=== PATIENT | male | born 1965 | race Caucasian/White ===

== ENCOUNTER 2017-02-22 12:48 | Observation (INO) ==
[2017-02-22 13:22] LABS: Basophils # 0.1 K/mcL (0.0-0.2); Basophils % 0.5 %; Eosinophils # 0.6 K/mcL (0.0-0.6); Eosinophils % 5.8 %; Hematocrit 53.6 % (37.5-50.1); Hemoglobin 18.7 g/dL (12.9-16.9); Immature Granulocytes % 0.3 % (0-4); Lymphocytes % 18.2 %; Mean Corpuscular HGB Conc 34.9 g/dL (31.6-35.5); Mean Corpuscular Hemoglobin 31.4 pg (28.0-33.3); Mean Corpuscular Volume 89.9 fL (83.0-100.0); Mean Platelet Volume 9.7 fL (9.4-12.4); Monocytes # 0.6 K/mcL (0.0-1.3); Monocytes % 5.1 %; Neutrophils # 7.7 K/mcL (1.6-8.9); Platelet Count 350 K/mcL (140-400); Red Blood Count 5.96 M/mcL (4.19-5.50); Red Cell Distribution Width 12.6 % (11.5-14.5); Segmented Neutrophils % 70.1 %
[2017-02-22 13:34] LABS: BUN/Creatinine Ratio 21 (6-26); Blood Urea Nitrogen 21 mg/dL (8-26); Calcium 9.6 mg/dL (8.6-10.8); Carbon Dioxide 26 mEq/L (19-29); Chloride 104 mEq/L (98-109); Glucose 79 mg/dL (70-99); Osmolality,Calculated 292 (280-300); Potassium 3.7 mEq/L (3.5-4.5); Sodium 140 mEq/L (136-145); eGFR For African Americans > 60 (> 60); eGFR For Non-African Americans > 60 (> 60)
--- NOTE | 2017-02-22 14:42 | Electrocardiograph Report ---
[facility] Test Date: 2017-02-22 Pat Name: Sadi Rider Department: 104 Room: Gender: M Hide Dyer: : 1965 Requested By: Alec Hussein Order Number: [id number] Reading MD: Ho Melgar MD Measurements Intervals [place] Rate: 62 P: 46 ID: [id number] QRS: -53 QRSD: 120 T: -11 QT: 393 QTc: 399 Interpretive Statements SINUS RHYTHM LEFT ANTERIOR FASCICULAR BLOCK [QRS AXIS <= -45, QR IN I, RS IN II] INTERPRETATION BASED ON A DEFAULT AGE OF 40 YEARS Electronically Signed On 02-22-2017 14:40:38 EST by Ho Melgar MD
--- NOTE | 2017-02-22 15:16 | Emergency Department Note ---
Disposition Clinical Impression: Chest pain Disposition: Admitted As Inpatient Condition: Fair Referrals: Mendez Hartman CNP [Primary Care Provider] - Forms: ED Satisfaction Letter Time of Disposition: 16:38 Chest Pain HPI - General Chief Complaint: ED Chest Pain Stated Complaint: chest pain Time Seen by Provider: 02/22/17 12:53 Source: patient, EMS Limitations: no limitations Vital Signs Reviewed: Yes Nursing Notes Reviewed: Yes - History of Present Illness HPI Narrative: Presents with chest pain which is sharp and deep and began around 11:30 today and is constant and began with exertion. No pleuritic aspect. No radiation to back. He does have associated diaphoresis dyspnea and was profusely diaphoretic earlier. No pain or swelling of the lower extremities or respiratory symptoms. Does have some bruising which he has from his job but nothing new. No fever or blurred vision. No rhinorrhea, cough, sneezing, blood in the urine or stool. No numbness of the extremities. Social history: No smoking. Family history: Positive for heart disease with his mother Severity scale (1-10): 5 - Related Data Home Medications Medication Instructions Recorded Confirmed Ascorbic Acid [Vitamin C] 250 mg PO DAILY 02/22/17 02/22/17 Aspirin [Aspirin] 81 mg PO DAILY 02/22/17 02/22/17 Ergocalciferol (VITAMIN D2) 50,000 unit PO FR 02/22/17 02/22/17 [Vitamin D2] Ibuprofen [Ibuprofen] 800 mg PO TID PRN 02/22/17 02/22/17 Losartan Potassium [Cozaar] 100 mg PO DAILY 02/22/17 02/22/17 Pravastatin Sodium [Pravastatin 10 mg PO DAILY 02/22/17 02/22/17 Sodium] Allergies Allergy/AdvReac Type Severity Reaction Status Date / Time No Known Allergies Allergy Verified 02/22/17 15:32 Review of Systems: As Per HPI Chest Pain PMH - Past Medical History Medical history: Reports: hyperlipidemia, hypertension Surgical history: Reports: non-contributory Psychiatric history: Reports: no psych history - Social History Smoking Status: Never smoker Alcohol use: Reports: none Drug use: Reports: none Physical Exam CONSTITUTIONAL: Well-appearing; well-nourished; A&O X 3, in no apparent distress HEAD: Normocephalic; atraumatic EYES: PERRL, no scleral icterus NOSE: The nose is normal in appearance without rhinorrhea NECK: No JVD or distended neck veins RESP: Normal chest excursion with respiration; breath sounds clear and equal bilaterally; no wheezes, rhonchi, or rales CARD: Regular rhythm, without murmurs, rub or gallop ABD: Non-distended; non-tender, soft, without rigidity, rebound or guarding,no pulsatile mass CHEST: No pain with palpation SKIN: Normal for age and race; warm and dry without diaphoresis ; no apparent lesions EXTREMITIES: Pulses are 2 plus and equal times 4 extremities, no peripheral edema or calf muscle pain - General Limitations: no limitations General appearance: alert, in distress Course Vital Signs Temperature 97.9 F 02/22/17 12:50 Pulse Rate 64 02/22/17 12:50 Respiratory Rate 16 02/22/17 12:50 Blood Pressure 160/117 02/22/17 12:50 O2 Sat by Pulse Oximetry 97 02/22/17 12:50 Temperature 97.9 F 02/22/17 12:50 Pulse Rate 55 02/22/17 15:45 Respiratory Rate 18 02/22/17 15:45 Blood Pressure 163/99 02/22/17 15:45 O2 Sat by Pulse Oximetry 100 02/22/17 15:45 Oxygen Delivery Oxygen Delivery Room Air Chest Pain - MDM Narrative Medical decision making narrative: I did review the initial labs. The patient's pain is worse and EKG will be repeated and the patient will be admitted with the new onset of pain and typical features as he does have a very concerning history. Patient will receive sublingual nitroglycerin, I will ensure that aspirin has been used today. 1512 I did review the patient's EKG showing normal sinus rhythm with a rate of 62 without acute ischemic change 1516 - Medical Records Medical records reviewed: Yes I reviewed the patient's medical records. - Lab Data Lab results reviewed: Yes I reviewed the patient's lab results. Result diagrams: 02/22/17 12:55 02/22/17 12:55 Lab Results 02/22/17 02/22/17 02/22/17 Range/Units 12:55 12:55 12:55 WBC 11.0 (4.3-11.1) K/mcL RBC 5.96 H (4.19-5.50) M/mcL Hgb 18.7 H (12.9-16.9) g/dL Hct 53.6 H (37.5-50.1) % MCV 89.9 (83.0-100.0) fL MCH 31.4 (28.0-33.3) pg MCHC 34.9 (31.6-35.5) g/dL RDW 12.6 (11.5-14.5) % Plt Count 350 (140-400) K/mcL MPV 9.7 (9.4-12.4) fL Immature Gran % 0.3 (0-4) % Seg Neutrophils % 70.1 % Lymphocytes % 18.2 % Monocytes % 5.1 % Eosinophils % 5.8 % Basophils % 0.5 % Neutrophils # 7.7 (1.6-8.9) K/mcL Lymphocytes # 2.0 (0.6-4.6) K/mcL Monocytes # 0.6 (0.0-1.3) K/mcL Eosinophils # 0.6 (0.0-0.6) K/mcL Basophils # 0.1 (0.0-0.2) K/mcL Sodium 140 (136-145) mEq/L Potassium 3.7 (3.5-4.5) mEq/L Chloride 104 (98-109) mEq/L Carbon Dioxide 26 (19-29) mEq/L BUN 21 (8-26) mg/dL Creatinine 0.98 (0.72-1.25) mg/dL Est GFR ( Amer) > 60 (> 60) Est GFR (Non-Af Amer) > 60 (> 60) BUN/Creatinine Ratio 21 (6-26) Glucose 79 (70-99) mg/dL Calculated Osmolality 292 (280-300) Calcium 9.6 (8.6-10.8) mg/dL Troponin I 0.01 (0-0.03) ng/mL - Radiology Data Radiology results reviewed: Yes I reviewed the patient's radiology results.
[2017-02-22] MEDS ORDERED: Aspirin 81 MG TAB.CHEW PO STA (15:19)
[2017-02-22] MEDS: Nitroglycerin 0.4 MG TAB.SUBL SL PRN ×3 (15:44→16:46)
[2017-02-22] MEDS ORDERED: Nitroglycerin 1 INCH/GM PACKET TP ONE (16:45)
[2017-02-22] MEDS ORDERED: Ondansetron 4 MG/2 ML VIAL IVP PRN (18:18)
[2017-02-22] MEDS ORDERED: Naloxone 0.4 MG/ML INJ IVP PRN (18:18)
[2017-02-22] MEDS ORDERED: 0.9 % Sodium Chloride 1,000 ML IVC SCH (18:30)
--- NOTE | 2017-02-22 18:39 | Internal Med History&Physical ---
Addendum entered and electronically signed by Jose Guadalupe Medel 02/22/17 20:26: Original Note: <Jose Guadalupe Medel - Last Filed: 02/22/17 18:36> Date of Encounter: 02/22/17 Time of Encounter: 18:36 Assessment and Plan (1) Chest pain Current visit: Yes Status: Acute No prior history of CT. Remains hemodynamically stable. CTA chest completed ruled out PE, no pulmonary abnormalities noted No recent cardiac workup. Denies any current chest pain since application of Nitropatch. Continue to rule out ACS TTE now Stress test in the morning Cardiac diet now, nothing by mouth after midnight Continuous telemetry Continue to monitor cardiac biomarkers Qualifiers: Ischemic chest pain type: unspecified angina pectoris type Qualified Code(s ): I20.9 - Angina pectoris, unspecified (2) HLD (hyperlipidemia) Current visit: Yes Status: Acute Continue statin at home dose Qualifiers: Hyperlipidemia type: unspecified Qualified Code(s): E78.5 - Hyperlipidemia , unspecified (3) HTN (hypertension) Current visit: Yes Status: Acute Mildly hypertensive upon admission. However improving since application of Nitropatch. Continue home antihypertensives Qualifiers: Hypertension type: essential hypertension Qualified Code(s): I10 - Essential (primary) hypertension (4) DVT prophylaxis Current visit: Yes Status: Acute Heparin 5000 units subcutaneous twice a day Internal Medicine - H&P: HPI Chief complaint: Chest pain Admitted From: Home Plans for Post Hospital Care: Home History of present illness: Mr. Rider is a 51 year old male with PMH of HLD and HTN. No prior history of CT[facility], ans constant, sharp/deep chest pain which began approximately 11:30 A.M. Patient denies any fever, chills, shortness of breath, extremity pain or swelling, syncope. Admits to increasing fatigue over the last couple of days, diaphoresis and nausea with chest pain and lightheadedness. Chest x-ray and CTA chest negative. Initial troponin negative. EKG normal sinus rhythm. However continued to have chest pain after arrival which was responsive to sublingual nitroglycerin. Chest returned shortly after initial dose of supplemental nitroglycerin, Nitropaste patch was applied and he is now chest pain-free. He is being admitted to rule out ACS Past Med Surg Social Fam HX - Past Medical History Medical history: hyperlipidemia, hypertension Psychiatric history: no psych history - Past Surgical History Surgical History: non-contributory - Social History Smoking Status: Never smoker Smokeless Tobacco Status: No Alcohol use: none Drug use: none - Family History Brother Hx Family Cancer: Yes (Polycythemia vera) Internal Medicine - H&P: Meds Ascorbic Acid [Vitamin C] 250 mg PO DAILY 02/22/17 [History] Aspirin [Aspirin] 81 mg PO DAILY 02/22/17 [History] Ergocalciferol (VITAMIN D2) [Vitamin D2] 50,000 unit PO FR 02/22/17 [History] Ibuprofen [Ibuprofen] 800 mg PO TID PRN 02/22/17 [History] Losartan Potassium [Cozaar] 100 mg PO DAILY 02/22/17 [History] Pravastatin Sodium [Pravastatin Sodium] 10 mg PO DAILY 02/22/17 [History] 3 Allergy/AdvReac Type Severity Reaction Status Date / Time No Known Allergies Allergy Verified 02/22/17 15:32 All Systems PM: A 10-system review of systems was performed and is negative for pertinent findings except as documented above in the HPI. - Constitutional Constitutional: no chills, no fever(s), no night sweats - Cardiovascular Cardiovascular ROS IM: as per HPI - Respiratory Respiratory: no cough, no dyspnea, no wheezing, no excessive phlegm production - Gastrointestinal Gastrointestinal: no abdominal pain, no diarrhea, no hematemesis, no hematochezia, no melena, no nausea, no vomiting - Musculoskeletal Musculoskeletal ROS IM: no numbness, no tingling - Integumentary Integumentary IM: no rash, no unusual bruising - Neurological Neurological ROS: no confusion, no convulsions, no focal weakness, no numbness, no tingling, no tremor(s) - Constitutional Vitals: Temp Pulse Resp BP Pulse Ox 97.9 F 60 18 112/85 96 02/22/17 12:50 02/22/17 17:34 02/22/17 17:34 02/22/17 17:34 02/22/17 17:34 General appearance: Present: cooperative, A&O X 3, no acute distress, answers questions appropriately - Head Head exam: Present: atraumatic, normocephalic - Neck Neck exam general surgery: Present: supple, trachea midline. Absent: lymphadenopathy - Respiratory Respiratory exam: Present: CTAB. Absent: accessory muscle use, rales, rhonchi, wheezes - Cardiovascular Cardiovascular exam: Present: RRR, +S1, +S2. Absent: diastolic murmur, gallop, rubs, systolic murmur - GI/Abdominal GI/Abdominal exam: Present: normal bowel sounds, soft, no peritoneal signs. Absent: distended, tenderness - Extremities Exam Extremities exam: Present: warm, radial pulses palpable and symmetrical. Absent : calf tenderness, cyanotic, pedal edema - Neurological Exam Neurological exam: Present: CN II-XII intact, oriented X3, no focal deficits. Absent: pronater drift, facial droop, speech deficit - Skin Skin exam: Present: dry, intact Internal Med - H&P Results - Labs CBC & Chem 7: 02/22/17 12:55 02/22/17 12:55 - EKG Data -: EKG Interpreted by Myself EKG shows normal: sinus rhythm Rate: normal - EKG Data Prior EKG available for review: yes When compared to previous EKG: there is no significant change Interpretation IM: normal EKG - Diagnostic Studies Chest x-ray Status: image reviewed by me Additional comments: No acute pulmonary process <Jese Lieberman - Last Filed: 02/23/17 02:19> Date of Encounter: 02/22/17 Internal Medicine - H&P: HPI History of present illness: Mr. Rider is a 51 year old male All Systems PM: A 10-system review of systems was performed and is negative for pertinent findings except as documented above in the HPI. - Constitutional Vitals: Temp Pulse Resp BP Pulse Ox 97.8 F 55 18 121/75 98 02/22/17 23:17 02/22/17 23:17 02/22/17 23:17 02/22/17 23:17 02/22/17 23:17 Internal Med - H&P Results - Labs CBC & Chem 7: 02/23/17 00:55 02/23/17 00:55 Labs: Short CBC 02/23/17 Range/Units 00:55 WBC 7.8 (4.3-11.1) K/mcL Hgb 16.4 D (12.9-16.9) g/dL Hct 46.9 (37.5-50.1) % Plt Count 297 (140-400) K/mcL Neutrophils # 4.3 (1.6-8.9) K/mcL BMP 02/23/17 00:55 Sodium 140 Potassium 3.8 Chloride 105 Carbon Dioxide 30 H BUN 18 Creatinine 0.88 Glucose 88 Calcium 8.9 Cardiac Enzymes 02/22/17 02/23/17 Range/Units 19:06 00:55 Troponin I 0.02 0.01 (0-0.03) ng/mL Liver Function 02/22/17 Range/Units 19:06 Total Bilirubin 0.8 (0.2-1.2) mg/dL Direct Bilirubin 0.3 (0.0-0.5) mg/dL AST 35 H (5-34) Units/L ALT 55 (0-55) Units/L Alkaline Phosphatase 86 (38-126) Units/L Albumin 3.5 (3.5-5.0) g/dL - Attending Attestation I have personally performed a face to face evaluation on this patient. I have reviewed and agree with the care plan provided by PAULINE Medel. History and Exam by me shows: Mr. Rider is a 51 year old male with PMH of HLD and HTN, no prior history of CT presented to [facility] today CP , located sub sternal region and left chest wall region radiating to his left shoulder. His CP relieved with SL Nitro. Denied any active CP now. Gen : A, A, O x 3 Chest: Diminished BS b/l, no crackles no wheezing Heart: S1 S2 ++ RRR No murmurs a/p 1. Acute CP So far negative trop no acute EKG changes will do stress test in AM 2. Hb -18 ?? Hemochromatosis vs PCV will check Iron studies
[2017-02-22 19:32] LABS: Albumin 3.5 g/dL (3.5-5.0); Albumin/Globulin Ratio 1.2 (1.1-2.2); Bilirubin,Direct 0.3 mg/dL (0.0-0.5); Bilirubin,Indirect 0.5 mg/dL (0.0-1.2); Bilirubin,Total 0.8 mg/dL (0.2-1.2); Total Protein 6.5 g/dL (6.0-8.3)
[2017-02-22] MEDS: *HR* Heparin 5,000 UNIT/ML VIAL SQ SCH (22:20)
[2017-02-23 01:17] LABS: Basophils % 0.5 %; Eosinophils # 0.6 K/mcL (0.0-0.6); Eosinophils % 7.2 %; Hematocrit 46.9 % (37.5-50.1); Immature Granulocytes % 0.3 % (0-4); Lymphocytes # 2.3 K/mcL (0.6-4.6); Lymphocytes % 29.2 %; Mean Corpuscular Hemoglobin 31.7 pg (28.0-33.3); Mean Corpuscular Volume 90.5 fL (83.0-100.0); Mean Platelet Volume 9.6 fL (9.4-12.4); Monocytes # 0.6 K/mcL (0.0-1.3); Monocytes % 8.2 %; Neutrophils # 4.3 K/mcL (1.6-8.9); Platelet Count 297 K/mcL (140-400); Red Blood Count 5.18 M/mcL (4.19-5.50); Red Cell Distribution Width 12.6 % (11.5-14.5); Segmented Neutrophils % 54.6 %
[2017-02-23 01:20] LABS: Hemoglobin 16.4 g/dL (12.9-16.9)
[2017-02-23 01:32] LABS: BUN/Creatinine Ratio 20 (6-26); Blood Urea Nitrogen 18 mg/dL (8-26); Calcium 8.9 mg/dL (8.6-10.8); Carbon Dioxide 30 mEq/L (19-29); Chloride 105 mEq/L (98-109); Glucose 88 mg/dL (70-99); Osmolality,Calculated 291 (280-300); Potassium 3.8 mEq/L (3.5-4.5); Sodium 140 mEq/L (136-145); eGFR For African Americans > 60 (> 60); eGFR For Non-African Americans > 60 (> 60)
[2017-02-23 01:36] LABS: Chol/HDL Ratio 3.9 (0-4.9)
[2017-02-23] MEDS: *HR* Heparin 5,000 UNIT/ML VIAL SQ SCH ×2 (05:32→21:30)
[2017-02-23] MEDS ORDERED: Regadenoson 0.4 MG/5 ML SYRINGE IVP ONE (09:22)
[2017-02-23] MEDS: Aspirin 81 MG TAB.CHEW PO SCH (11:12)
[2017-02-23] MEDS: Ascorbic Acid 500 MG TABLET PO SCH (11:12)
[2017-02-23] MEDS: Ibuprofen 800 MG TABLET PO PRN ×3 (11:12→21:34)
--- NOTE | 2017-02-23 14:40 | Internal Med Progress Note ---
Date of Encounter: 02/23/17 Time of Encounter: 14:38 - Assessment and plan (1) Chest pain Current Visit: Yes Status: Acute Assessment and plan: presented with chest pain that occurred while working. Serial troponin negative. EKG without acute ST changes. Chest CTA negative for pulmonary embolism. Stress test with mild intensity perfusion defect in which ischemia cannot be excluded. TTE pending. Cont ASA. Cardiology consulted Qualifiers: Ischemic chest pain type: unspecified angina pectoris type Qualified Code(s ): I20.9 - Angina pectoris, unspecified (2) HLD (hyperlipidemia) Current Visit: Yes Status: Acute Assessment and plan: LDL 91, cont home statin Qualifiers: Hyperlipidemia type: unspecified Qualified Code(s): E78.5 - Hyperlipidemia , unspecified (3) HTN (hypertension) Current Visit: Yes Status: Acute Assessment and plan: per hx. BP variable but acceptable. Cont home BP medication. Monitor BP and titrate PRN Qualifiers: Hypertension type: essential hypertension Qualified Code(s): I10 - Essential (primary) hypertension (4) DVT prophylaxis Current Visit: Yes Status: Acute Assessment and plan: heparin - Subjective Interval history: Seen and examined at bedside. Patient is new to me, information obtained from chart review and patient report. Patient's that he had acute onset of chest pain while working yesterday no associated shortness of breath. Says he feels better now but is still having intermittent chest discomfort. No previous history of CAD. He is aware of positive stress test and the need for cardiology consult. - Constitutional Vitals: Temp Pulse Resp BP Pulse Ox 97.6 F 58 18 149/80 97 02/23/17 11:03 02/23/17 12:53 02/23/17 12:53 02/23/17 14:16 02/23/17 11:03 General appearance: Present: cooperative, A&O X 3, no acute distress, answers questions appropriately - Head Head exam: Present: atraumatic, normocephalic - Eye Eye exam: Present: PERRL, conjuntiva pink, sclera anicteric Pupils: Present: PERRL - Neck Neck exam general surgery: Present: supple, trachea midline. Absent: lymphadenopathy - Respiratory Respiratory exam: Present: CTAB. Absent: accessory muscle use, rales, rhonchi, wheezes - Cardiovascular Cardiovascular exam: Present: RRR, +S1, +S2. Absent: diastolic murmur, gallop, rubs, systolic murmur - GI/Abdominal GI/Abdominal exam: Present: normal bowel sounds, soft, no peritoneal signs. Absent: distended, tenderness - Extremities Exam Extremities exam: Present: warm, radial pulses palpable and symmetrical. Absent : calf tenderness, cyanotic, pedal edema - Neurological Exam Neurological exam: Present: CN II-XII intact, oriented X3, no focal deficits. Absent: pronater drift, facial droop, speech deficit - Skin Skin exam: Present: dry, intact Internal Medicine: Result - Labs CBC & Chem 7: 02/23/17 00:55 02/23/17 00:55 Labs: Short CBC 02/23/17 Range/Units 00:55 WBC 7.8 (4.3-11.1) K/mcL Hgb 16.4 D (12.9-16.9) g/dL Hct 46.9 (37.5-50.1) % Plt Count 297 (140-400) K/mcL Neutrophils # 4.3 (1.6-8.9) K/mcL BMP 02/23/17 00:55 Sodium 140 Potassium 3.8 Chloride 105 Carbon Dioxide 30 H BUN 18 Creatinine 0.88 Glucose 88 Calcium 8.9 Cardiac Enzymes 02/22/17 02/23/17 02/23/17 Range/Units 19:06 00:55 06:35 Troponin I 0.02 0.01 0.01 (0-0.03) ng/mL Liver Function 02/22/17 Range/Units 19:06 Total Bilirubin 0.8 (0.2-1.2) mg/dL Direct Bilirubin 0.3 (0.0-0.5) mg/dL AST 35 H (5-34) Units/L ALT 55 (0-55) Units/L Alkaline Phosphatase 86 (38-126) Units/L Albumin 3.5 (3.5-5.0) g/dL Consult Discharge Plan - Plan Referrals: Mendez Hartman CNP [Primary Care Provider] -
[2017-02-23] MEDS ORDERED: amLODIPine 5 MG TABLET PO SCH (15:45)
--- NOTE | 2017-02-23 15:48 | Cardiology Consult Note ---
Date of Encounter: 02/23/17 Time of Encounter: 15:45 Assessment and Plan (1) Chest pain Current Visit: Yes Status: Acute Per Cardiology: Trops - x 4. Currently CP free. Echo pending. Qualifiers: Ischemic chest pain type: unspecified angina pectoris type Qualified Code(s ): I20.9 - Angina pectoris, unspecified (2) Abnormal nuclear stress test Current Visit: Yes Status: Acute Per Cardiology: Nuclear stress test results showed very mild intensity perfusion defect in which ischemia could not be excluded, of note poor quality study. Gated EF 69%. Echo is pending. I had lengthy discussion with patient regarding blood pressure optimization and following up as outpatient versus proceeding with further ischemic evaluation in terms of left heart catheterization. Patient agreeable to evaluate decision tomorrow morning once Echo completed. We'll discuss and review with Dr. Servin. NPO after midnight in case catheterization warranted. (3) HTN (hypertension) Current Visit: Yes Status: Acute Per Cardiology: Systolic blood pressure currently the 170s to 180s, not well-controlled. On ARB and also channel braden. Will increase Norvasc. Qualifiers: Hypertension type: essential hypertension Qualified Code(s): I10 - Essential (primary) hypertension Discussion w patient/family: The assessment and plan as outlined above was discussed with the patient who expressed understanding and agreement. All questions were answered. Thank you for involving us in the care of your patient. Please call with any questions. History of Present Illness Consult date: 02/23/17 Requesting physician: Dede Howard Consult reason: +ST Chief complaint: CP History of present illness: Mr. Rider is a 51 year old male with a relevant past medical history of hypertension and hyperlipidemia. Reports positive family history of CAD with mother restenting in her 60s. Father with history of rheumatic heart disease and mechanical mitral valve. She denies any previous ischemic evaluation. Denies any history of nicotine abuse. Cardiology consult for abnormal stress test results. Patient reports intermittent left-sided anterior chest pain off and on for years now, however worsened over the past few weeks and now with left arm pain. She reports symptoms seem to occur with exertion and stress. 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 He reports up until about 8 months ago was exercising regularly and jogging on a treadmill up to 3 miles 3 times per week, however has not been participating with his activities with leg injury. He does report overall increase in fatigue and dyspnea on exertion. He reports pain symptoms do not worsen with deep respiration or palpation. Currently chest pain-free. Denies any active bleeding or blood loss. Repoerts BPs elevated recently. Denies any other symptoms. Past Med Surg Social Fam HX - Past Medical History Attestation: Yes The following information was validated with the patient. Source: patient, old records reviewed Medical history: hyperlipidemia, hypertension Psychiatric history: no psych history - Past Surgical History Surgical History: non-contributory - Social History Smoking Status: Never smoker Smokeless Tobacco Status: No Alcohol use: none Drug use: none - Family History Brother Hx Family Cancer: Yes (Polycythemia vera) Mother Living Status: Still Living Hx Family Cardiac Disorders: Yes Hx Family Respiratory Disorders: No Hx Family Cancer: No Hx Family GI Disorders: No Hx Family Genitourinary Disorders: No Hx Family Endocrine Disorder: No Hx Family Musculoskeletal Disorders: No Hx Family Neuromuscular Disorders: No Hx Family Neurologic Disorders: No Hx Family HEENT Disorders: No Hx Family Autoimmune Disorders: No Hx Family Reproductive Disorders: No Hx Family Psychosocial Disorders: No Hx Family Medical Disorders: No Father Living Status: Hx Family Cardiac Disorders: No Hx Family Respiratory Disorders: No Hx Family Cancer: Yes (esophageal) Hx Family GI Disorders: No Hx Family Genitourinary Disorders: No Hx Family Endocrine Disorder: No Hx Family Musculoskeletal Disorders: No Hx Family Neuromuscular Disorders: No Hx Family Neurologic Disorders: No Hx Family HEENT Disorders: No Hx Family Autoimmune Disorders: No Hx Family Reproductive Disorders: No Hx Family Psychosocial Disorders: No Hx Family Medical Disorders: No Medications and Allergies Ascorbic Acid [Vitamin C] 250 mg PO DAILY 02/22/17 [History] Aspirin [Aspirin] 81 mg PO DAILY 02/22/17 [History] Ergocalciferol (VITAMIN D2) [Vitamin D2] 50,000 unit PO FR 02/22/17 [History] Ibuprofen [Ibuprofen] 800 mg PO TID PRN 02/22/17 [History] Losartan Potassium [Cozaar] 100 mg PO DAILY 02/22/17 [History] Pravastatin Sodium [Pravastatin Sodium] 10 mg PO DAILY 02/22/17 [History] 3 Allergy/AdvReac Type Severity Reaction Status Date / Time No Known Allergies Allergy Verified 02/22/17 15:32 All Systems Review: A 10-system review of systems was performed and is negative for pertinent findings except as documented above in the HPI. - Constitutional Constitutional: fatigue - Cardiovascular Cardiovascular: as per HPI, chest pain with exertion, dyspnea on exertion Physical Examination Vital Signs, Last 4 Hours Temp Pulse Resp BP Pulse Ox 02/23/17 15:30 98.1 F 61 16 185/93 97 02/23/17 14:16 149/80 02/23/17 12:53 58 18 176/84 General: Conversant, No Apparent Distress HEENT: Atraumatic, Normocephaly, Mucus Membranes Moist Neck: No JVD, Normal carotid pulses Cardiac: Reg Rate and Rhythm, Normal S1 and S2, No Murmur Lungs: Normal Breath Sounds, No Wheeze, Rales, Rhonchi Neuro: Alert and responsive, No focal deficits noted Abdomen: Soft, Non-Tender Skin: No rashes noted on visualized skin Musculoskeletal: No Chest Wall Tenderness Extremities: No Clubbing, No Cyanosis, No Edema, Normal Pulses Results 02/23/17 00:55 02/23/17 00:55 Lab Results Laboratory Tests 02/22/17 02/22/17 02/22/17 12:55 19:06 19:06 AST 35 H ALT 55 Troponin I 0.01 0.02 LDL Cholesterol, Calc 02/23/17 02/23/17 02/23/17 00:55 00:55 06:35 AST ALT Troponin I 0.01 0.01 LDL Cholesterol, Calc 91 ITS Impressions Chest X-Ray 02/22/17 13:12 IMPRESSION: No convincing evidence of acute cardiopulmonary abnormality. D/ / Mike Villar MD / Mike Villar MD Interpreting Provider: Mike Villar MD Chest CTA 02/22/17 13:55 IMPRESSION: 1. No evidence of pulmonary embolus or acute cardiopulmonary abnormality. 2. Scattered noncalcified small pulmonary nodules measuring up to 5 mm in diameter. See follow-up recommendations below. RECOMMENDATIONS: Fleischner Society guidelines for follow-up and management of incidentally detected pulmonary nodules: Multiple Solid Nodules: Nodule size less than 6 mm In a low-risk patient, no routine follow-up. In a high-risk patient, optional CT at 12 months. - Low risk patients include individuals with minimal or absent history of smoking and other known risk factors. - High risk patients include individuals with a history or smoking or known risk factors. Radiology 2017 http://pubs.rsna.org/doi/full/10.1148/radiol.[email or web address] D/ / Gee Boykin / Gee Boykin Interpreting Provider: Gee Boykin Active Medications Amlodipine Besylate (Norvasc) 5 mg PO DAILY [facility] PRN Reason: Protocol Stop: 08/25/17 15:46 Ascorbic Acid (Vitamin C) 250 mg PO DAILY [facility] Stop: 08/25/17 09:01 Last Admin: 02/23/17 11:12 Dose: 250 mg Aspirin (Aspirin) 81 mg PO DAILY [facility] Stop: 08/25/17 09:01 Last Admin: 02/23/17 11:12 Dose: 81 mg Ergocalciferol (Drisdol (50,000 Unit)) 50,000 unit PO FR [facility] Stop: 08/25/17 09:01 Last Admin: 02/23/17 11:12 Dose: 50,000 unit Heparin Sodium (Porcine) (Heparin) 5,000 unit SQ Q8HCO [facility] Stop: 08/25/17 22:01 Ibuprofen (Motrin) 800 mg PO TID PRN; Protocol PRN Reason: Pain Stop: 08/24/17 18:18 Last Admin: 02/23/17 11:12 Dose: 800 mg Losartan Potassium (Cozaar) 100 mg PO DAILY [facility] Stop: 08/25/17 09:01 Last Admin: 02/23/17 11:12 Dose: 100 mg Morphine Sulfate (Morphine Sulfate) 2 mg IVP Q4HR PRN PRN Reason: severe pain Stop: 08/24/17 19:45 Naloxone HCl (Narcan) 0.4 mg IVP Q2MIN PRN PRN Reason: Opioid Reversal Stop: 08/24/17 18:19 Nitroglycerin (Nitroglycerin) 0.4 mg SL Q5MIN PRN PRN Reason: Chest Pain Stop: 08/24/17 15:10 Last Admin: 02/22/17 16:46 Dose: 0.4 mg Ondansetron HCl (Zofran) 4 mg IVP Q8HR PRN PRN Reason: Nausea And Vomiting Stop: 08/24/17 18:19 Simvastatin (Zocor) 5 mg PO DAILY [facility] Stop: 08/25/17 09:01 Last Admin: 02/23/17 11:12 Dose: 5 mg - Imaging and Cardiology Stress Test: report reviewed Echo: pending - EKG Interpretation EKG results cardiology: personally reviewed, normal ECG, sinus rhythm Consult Discharge Plan - Plan Referrals: Mendez Hartman, PHARMACIST CRITICAL CARE [Primary Care Provider] -
[2017-02-23] MEDS ORDERED: amLODIPine 5 MG TABLET PO ONE (16:16)
--- NOTE | 2017-02-23 17:15 | Electrocardiograph Report ---
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
[2017-02-23] MEDS: Nitroglycerin 0.4 MG TAB.SUBL SL PRN (21:29)
[2017-02-24] MEDS: *HR* Heparin 5,000 UNIT/ML VIAL SQ SCH ×3 (06:19→21:59)
[2017-02-24 06:30] LABS: Hemoglobin A1C 5.5 %
[2017-02-24] MEDS: Ascorbic Acid 500 MG TABLET PO SCH (09:48)
[2017-02-24] MEDS: Aspirin 81 MG TAB.CHEW PO SCH (09:48)
[2017-02-24] MEDS: amLODIPine 5 MG TABLET PO SCH (09:49)
--- NOTE | 2017-02-24 11:45 | Cardiology Progress Note ---
Date of Encounter: 02/24/17 Time of Encounter: 11:42 Assessment and Plan (1) Chest pain Current Visit: Yes Status: Acute Chest discomfort of unclear significance. Symptoms somewhat typical of angina. Stress test demonstrated a small, apical lateral defect possibly due to ischemia. TTE demonstrates normal LV function. Symptoms, test results discussed with patient. Given the low risk findings on stress test, patient was offered medical therapy with outpatient follow-up. He declined and prefers to have a cardiac catheterization performed. He states he" would like to have an answer " prior to discharge. The risks, benefits, and alternatives to a cardiac catheterization discussed. Patient agreeable to proceed. We'll plan for Sunday. All questions answered. Continue beta braden. Patient reports statin allergy. Start aspirin 81 mg daily. Qualifiers: Ischemic chest pain type: unspecified angina pectoris type Qualified Code(s ): I20.9 - Angina pectoris, unspecified (2) Abnormal nuclear stress test Current Visit: Yes Status: Acute Discussion w patient/family: The assessment and plan as outlined above was discussed with the patient and/or family members who expressed understanding and agreement. All questions were answered. Thank you for involving us in the care of your patient. Please call with any questions. Subjective Principal diagnosis: Chest discomfort Interval history: Patient seen and examined earlier this morning. Symptoms of chest pain prior to admission. Patient reports ongoing chest pain intermittently during this hospital stay. Per reports, patient describes substernal/left sided discomfort, worse with exertion, seems to improve with rest. No radiation, nausea, vomiting. Stress test demonstrated a small sized, reversible perfusion defect possibly due to ischemia. Echocardiogram demonstrates normal LV function, no significant valve disease. Objective Vital Signs, Last 4 Hours Temp Pulse Resp BP Pulse Ox 02/24/17 10:53 97.8 F 58 16 173/97 97 02/24/17 08:29 98.9 F 53 17 167/99 95 General: Conversant, No Apparent Distress HEENT: Atraumatic, Normocephaly, Mucus Membranes Moist Neck: No JVD, Normal carotid pulses Cardiac: Reg Rate and Rhythm, Normal S1 and S2, No Murmur Lungs: Normal Breath Sounds, No Wheeze, Rales, Rhonchi Neuro: Alert and responsive, No focal deficits noted Abdomen: Soft, Non-Tender Skin: No rashes noted on visualized skin Musculoskeletal: No Chest Wall Tenderness Extremities: No Clubbing, No Cyanosis, No Edema Results 02/23/17 00:55 02/23/17 00:55 - Imaging and Cardiology Stress Test: report reviewed Echo: report reviewed - EKG Interpretation EKG results cardiology: personally reviewed Consult Discharge Plan - Plan Referrals: Mendez Hartman CNP [Primary Care Provider] -
--- NOTE | 2017-02-24 15:27 | Internal Med Progress Note ---
Date of Encounter: 02/24/17 Time of Encounter: 15:20 - Assessment and plan (1) Chest pain Current Visit: Yes Status: Acute Assessment and plan: presented with chest pain that occurred while working. Serial troponin negative. EKG without acute ST changes. Chest CTA negative for pulmonary embolism. Stress test with mild intensity perfusion defect in which ischemia cannot be excluded. TTE with EF 65%, mild diastolic dysfunction. Cont ASA. [facility] planned for 02/26. Cardiology following Qualifiers: Ischemic chest pain type: unspecified angina pectoris type Qualified Code(s ): I20.9 - Angina pectoris, unspecified (2) HTN (hypertension) Current Visit: Yes Status: Acute Assessment and plan: per hx. BP variable with SBP is 160s to 170s. Home amlodipine increased 02/23. Continue home ARB. BP remains elevated on 02/24 we will continue current BP medication regimen as it can take up to 4-5 doses of new agent to see maximum effectiveness. PRN hydralazine for SBP greater than 180. Monitor BP and titrate PRN Qualifiers: Hypertension type: essential hypertension Qualified Code(s): I10 - Essential (primary) hypertension (3) HLD (hyperlipidemia) Current Visit: Yes Status: Acute Assessment and plan: LDL 91, cont home statin Qualifiers: Hyperlipidemia type: unspecified Qualified Code(s): E78.5 - Hyperlipidemia , unspecified (4) DVT prophylaxis Current Visit: Yes Status: Acute Assessment and plan: heparin - Subjective Interval history: Seen and examined at bedside. Patient says he had uneventful night. Still with intermittent chest pain that radiates to left arm. Says pain is tolerable , waxes and wanes. No shortness of breath. He is aware of need to stay inpatient for left heart catheter on Sunday. - Constitutional Vitals: Temp Pulse Resp BP Pulse Ox 97.4 F L 60 18 167/89 99 02/24/17 14:44 02/24/17 14:44 02/24/17 14:44 02/24/17 14:44 02/24/17 14:44 General appearance: Present: cooperative, A&O X 3, no acute distress, answers questions appropriately - Head Head exam: Present: atraumatic, normocephalic - Eye Eye exam: Present: PERRL, conjuntiva pink, sclera anicteric Pupils: Present: PERRL - Neck Neck exam general surgery: Present: supple, trachea midline. Absent: lymphadenopathy - Respiratory Respiratory exam: Present: CTAB. Absent: accessory muscle use, rales, rhonchi, wheezes - Cardiovascular Cardiovascular exam: Present: RRR, +S1, +S2. Absent: diastolic murmur, gallop, rubs, systolic murmur - GI/Abdominal GI/Abdominal exam: Present: normal bowel sounds, soft, no peritoneal signs. Absent: distended, tenderness - Extremities Exam Extremities exam: Present: warm, radial pulses palpable and symmetrical. Absent : calf tenderness, cyanotic, pedal edema - Neurological Exam Neurological exam: Present: CN II-XII intact, oriented X3, no focal deficits. Absent: pronater drift, facial droop, speech deficit - Skin Skin exam: Present: dry, intact Internal Medicine: Result - Labs CBC & Chem 7: 02/23/17 00:55 02/23/17 00:55 - Impressions Impressions Echocardiogram 02/23/17 14:39 Impressions: LVEF 65%. Normal LV chamber size and function. Mild concentric left ventricular hypertrophy. Mild left ventricular diastolic dysfunction. Normal right ventricular structure and function. No evidence of pulmonary hypertension identified. No significant valvular dysfunction. Left Ventricular Wall Motion: Rest Echo Findings All wall segments showed normal motion. Findings: Study Quality * Technically adequate exam. ECG Findings * Normal sinus rhythm. Left Ventricle * LVEF 65%. * Normal LV chamber size and function. * Mild concentric left ventricular hypertrophy. * Mild left ventricular diastolic dysfunction. Right Ventricle * Normal right ventricular structure and function. Left Atrium * Moderately dilated left atrium. Right Atrium * Normal right atrial size. Aortic Valve * Trileaflet aortic valve with normal function. * No aortic regurgitation. * No aortic stenosis. Mitral Valve * Normal mitral valve structure and function. * No mitral regurgitation. * No mitral stenosis. Tricuspid Valve * Normal tricuspid valve structure and function. * Trace tricuspid regurgitation. * No evidence of pulmonary hypertension. Pulmonic Valve * Pulmonic valve not well visualized. * No pulmonic regurgitation. Aorta * Normally sized aortic root. Pericardium * The pericardium appears normal. IVC * Normal IVC dimensions and inspiratory collapse. Pulmonary Artery * Normal visualized portions of the main pulmonary artery. Consult Discharge Plan - Plan Referrals: Mendez Hartman CNP [Primary Care Provider] -
[2017-02-24] MEDS: *HR* Morphine 2 MG/ML SYRINGE IVP PRN (18:19)
[2017-02-25] MEDS: *HR* Heparin 5,000 UNIT/ML VIAL SQ SCH ×2 (05:51→14:41)
[2017-02-25] MEDS: Aspirin 81 MG TAB.CHEW PO SCH (08:52)
[2017-02-25] MEDS: Ascorbic Acid 500 MG TABLET PO SCH (08:52)
[2017-02-25] MEDS: amLODIPine 5 MG TABLET PO SCH (08:52)
[2017-02-25] MEDS: Ibuprofen 800 MG TABLET PO PRN (11:15)
--- NOTE | 2017-02-25 11:37 | Cardiology Progress Note ---
Date of Encounter: 02/25/17 Time of Encounter: 11:30 Assessment and Plan (1) Chest pain Current Visit: Yes Status: Acute Per Cardiology: Chest discomfort of unclear significance. Symptoms somewhat typical of angina. Stress test demonstrated a small, apical lateral defect possibly due to ischemia. TTE demonstrates normal LV function. CP free. BP better controlled. On asa and BB. Patient reports statin allergy. Plan for [facility] tomorrow. Qualifiers: Ischemic chest pain type: unspecified angina pectoris type Qualified Code(s ): I20.9 - Angina pectoris, unspecified (2) Abnormal nuclear stress test Current Visit: Yes Status: Acute Per Cardiology: Nuclear stress test results showed very mild intensity perfusion defect in which ischemia could not be excluded, of note poor quality study. Gated EF 69%. (3) HTN (hypertension) Current Visit: Yes Status: Acute Per Cardiology: Systolic blood pressure currently 150's, slightly improved. HR 50's - 70's. will add low dose BB. On ARB and calcium channel braden. Qualifiers: Hypertension type: essential hypertension Qualified Code(s): I10 - Essential (primary) hypertension Discussion w patient/family: The assessment and plan as outlined above was discussed with the patient who expressed understanding and agreement. All questions were answered. Thank you for involving us in the care of your patient. Please call with any questions. Subjective Principal diagnosis: Chest discomfort Interval history: Seen resting quietly in bed. Denies any chest pain, short of breath, palpitations. Objective Vital Signs, Last 4 Hours Temp Pulse Resp BP Pulse Ox 02/25/17 11:03 97.5 F L 77 16 158/83 97 General: Conversant, No Apparent Distress HEENT: Atraumatic, Normocephaly, Mucus Membranes Moist Neck: No JVD, Normal carotid pulses Cardiac: Reg Rate and Rhythm, Normal S1 and S2, No Murmur Lungs: Normal Breath Sounds, No Wheeze, Rales, Rhonchi Neuro: Alert and responsive, No focal deficits noted Abdomen: Soft, Non-Tender Skin: No rashes noted on visualized skin Musculoskeletal: No Chest Wall Tenderness Extremities: No Clubbing, No Cyanosis, No Edema, Normal Pulses Results 02/23/17 00:55 02/23/17 00:55 - Imaging and Cardiology Stress Test: report reviewed Cardiac cath: pending Consult Discharge Plan - Plan Referrals: Mendez Hartman, ORGANIZATIONAL RESEARCH CONSULTANT [Primary Care Provider] -
--- NOTE | 2017-02-25 15:45 | Internal Med Progress Note ---
Date of Encounter: 02/25/17 Time of Encounter: 15:43 - Assessment and plan (1) Chest pain Current Visit: Yes Status: Acute Assessment and plan: presented with chest pain that occurred while working. Serial troponin negative. EKG without acute ST changes. Chest CTA negative for pulmonary embolism. Stress test with mild intensity perfusion defect in which ischemia cannot be excluded. TTE with EF 65%, mild diastolic dysfunction. Cont ASA. [facility] planned for 02/26. Cardiology following Qualifiers: Ischemic chest pain type: unspecified angina pectoris type Qualified Code(s ): I20.9 - Angina pectoris, unspecified (2) HTN (hypertension) Current Visit: Yes Status: Acute Assessment and plan: per hx. BP variable with SBP is 160s to 170s. Home amlodipine increased 02/23. BP continue to be elevated and low dose BB added per cardiology. Continue home ARB and CCB. PRN hydralazine for SBP greater than 180. Monitor BP and titrate PRN Qualifiers: Hypertension type: essential hypertension Qualified Code(s): I10 - Essential (primary) hypertension (3) HLD (hyperlipidemia) Current Visit: Yes Status: Acute Assessment and plan: LDL 91, cont home statin Qualifiers: Hyperlipidemia type: unspecified Qualified Code(s): E78.5 - Hyperlipidemia , unspecified (4) DVT prophylaxis Current Visit: Yes Status: Acute Assessment and plan: heparin - Time Spent With Patient less than 15 minutes - Subjective Interval history: Seen and examined at bedside. No changes in exam to report. He does say chest pain has eased up quite a bit. No shortness of breath. He is aware of need to be NPO for [facility] tomorrow. - Constitutional Vitals: Temp Pulse Resp BP Pulse Ox 97.8 F 75 16 143/86 97 02/25/17 15:07 02/25/17 15:07 02/25/17 15:07 02/25/17 15:07 02/25/17 15:07 General appearance: Present: cooperative, A&O X 3, no acute distress, answers questions appropriately - Head Head exam: Present: atraumatic, normocephalic - Eye Eye exam: Present: PERRL, conjuntiva pink, sclera anicteric Pupils: Present: PERRL - Neck Neck exam general surgery: Present: supple, trachea midline. Absent: lymphadenopathy - Respiratory Respiratory exam: Present: CTAB. Absent: accessory muscle use, rales, rhonchi, wheezes - Cardiovascular Cardiovascular exam: Present: RRR, +S1, +S2. Absent: diastolic murmur, gallop, rubs, systolic murmur - GI/Abdominal GI/Abdominal exam: Present: normal bowel sounds, soft, no peritoneal signs. Absent: distended, tenderness - Extremities Exam Extremities exam: Present: warm, radial pulses palpable and symmetrical. Absent : calf tenderness, cyanotic, pedal edema - Neurological Exam Neurological exam: Present: CN II-XII intact, oriented X3, no focal deficits. Absent: pronater drift, facial droop, speech deficit - Skin Skin exam: Present: dry, intact Internal Medicine: Result - Labs CBC & Chem 7: 02/23/17 00:55 02/23/17 00:55 Consult Discharge Plan - Plan Referrals: Mendez Hartman CNP [Primary Care Provider] -
[2017-02-26 06:14] LABS: Hematocrit 54.5 % (37.5-50.1); Mean Corpuscular HGB Conc 36.3 g/dL (31.6-35.5); Mean Corpuscular Hemoglobin 32.4 pg (28.0-33.3); Mean Corpuscular Volume 89.1 fL (83.0-100.0); Mean Platelet Volume 9.5 fL (9.4-12.4); Platelet Count 321 K/mcL (140-400); Red Blood Count 6.12 M/mcL (4.19-5.50); Red Cell Distribution Width 12.8 % (11.5-14.5)
[2017-02-26 06:16] LABS: Hemoglobin 19.8 g/dL (12.9-16.9)
[2017-02-26 06:20] LABS: Prothrombin Time 10.8 Seconds (9.4-12.1)
[2017-02-26 06:28] LABS: BUN/Creatinine Ratio 23 (6-26); Blood Urea Nitrogen 19 mg/dL (8-26); Calcium 9.4 mg/dL (8.6-10.8); Carbon Dioxide 28 mEq/L (19-29); Chloride 104 mEq/L (98-109); Glucose 103 mg/dL (70-99); Osmolality,Calculated 291 (280-300); Potassium 4.3 mEq/L (3.5-4.5); Sodium 139 mEq/L (136-145); eGFR For African Americans > 60 (> 60); eGFR For Non-African Americans > 60 (> 60)
[2017-02-26] MEDS ORDERED: Heparin 1,000 UNIT, 0.9 % Sodium Chloride 500 ML INARTERIAL ONE (08:15)
--- NOTE | 2017-02-26 08:18 | Event Note ---
Date of Encounter: 02/26/17 Time of Encounter: 08:15 - Cardiology Event Note Laboratory Tests 02/26/17 02/26/17 05:39 05:39 INR 1.0 Creatinine 0.83 Est GFR (Non-Af Amer) > 60 Denies any CP. Plan for [facility] today.
[2017-02-26] MEDS: amLODIPine 5 MG TABLET PO SCH (08:55)
[2017-02-26] MEDS: Ascorbic Acid 500 MG TABLET PO SCH (08:57)
[2017-02-26] MEDS: Aspirin 81 MG TAB.CHEW PO SCH (08:57)
--- NOTE | 2017-02-26 14:56 | Discharge Summary ---
Date of Encounter: 02/27/17 Time of Encounter: 11:00 - Discharge Diagnosis (1) Chest pain Priority: Primary Status: Resolved Comments: presented with chest pain that occurred while working. Serial troponin negative. EKG without acute ST changes. Chest CTA negative for pulmonary embolism. Stress test with mild intensity perfusion defect in which ischemia cannot be excluded. TTE with EF 65%, mild diastolic dysfunction. Cont ASA. LHC planned for 02/26. Anticipate discharge 02/09/17 if LHC unremarkable and no intervention required. Qualifiers: Ischemic chest pain type: unspecified angina pectoris type Qualified Code(s ): I20.9 - Angina pectoris, unspecified (2) HTN (hypertension) Priority: Primary Status: Acute Comments: per hx. BP variable with SBP is 160s to 170s. Home amlodipine increased while inpatient and low-dose BB added per cardiology. Continue home ARB. BP variable but overall improved. Recommend follow-up with PCP within one week for BP recheck. Qualifiers: Hypertension type: essential hypertension Qualified Code(s): I10 - Essential (primary) hypertension (3) HLD (hyperlipidemia) Priority: Primary Status: Acute Qualifiers: Hyperlipidemia type: unspecified Qualified Code(s): E78.5 - Hyperlipidemia , unspecified - Discharge Medications Prescriptions: amLODIPine [Norvasc] 10 mg PO DAILY #30 tablet Metoprolol [Lopressor] 12.5 mg PO BID #30 tablet Home Medications: Ascorbic Acid [Vitamin C] 250 mg PO DAILY 02/22/17 [History] Aspirin 81 mg PO DAILY 02/22/17 [History] Ergocalciferol (VITAMIN D2) [Vitamin D2] 50,000 unit PO FR 02/22/17 [History] Ibuprofen 800 mg PO TID PRN 02/22/17 [History] Losartan Potassium [Cozaar] 100 mg PO DAILY 02/22/17 [History] Pravastatin Sodium 10 mg PO DAILY 02/22/17 [History] Metoprolol [Lopressor] 12.5 mg PO BID #30 tablet 02/26/17 [Rx] amLODIPine [Norvasc] 10 mg PO DAILY #30 tablet 02/26/17 [Rx] Allergies/Adverse Reactions: 3 Allergy/AdvReac Type Severity Reaction Status Date / Time Beef Containing Products Allergy Hives Verified 02/25/17 18:39 beef derived (bovine) Allergy Hives Verified 02/25/17 18:39 Procedures/tests Complete & Pending: Procedures Performed prior 72 hours Category Date Time Status CL Cardiac Catheterization [CL] Routine Fruit Thinner 02/26/17 11:38 Ordered EV echocardiogram Routine Y 02/23/17 14:39 Completed Date of admission: 02/22/17 18:13 Primary care physician: Mendez Hartman CNP Consults: 02/23/17 14:39 Consult to Cardiology [CONS] Routine Comment: Consulting Provider: Cardiology [place] Reason for Consult: Abnormal stress test Call Completed: Yes Discharging clinician: Dede Howard Anticipated date of discharge: 02/26/17 - Patient Status Disposition: Home, Self-Care Condition: Good Functional capacity at discharge: independent ambulation Overall status at discharge: patient is progressing back to baseline - Discharge Instructions Instructions: Metoprolol (By mouth), Chronic Hypertension (DC) Follow Up With: Mendez Hartman CNP [Primary Care Provider] - 03/01/17 9:30 am - Diet and Activity Activity: increase activity as tolerated, resume usual activities as tolerated Diet: low fat, low cholesterol Interval History: Seen and examined at bedside, no changes in exam to report. No chest pain or shortness of breath on my exam. Awaiting left heart catheterization. Hospital course: See assessment and plan for hospital course - Time Spent with Patient Total time spent providing and/or coordinating discharge services: - Constitutional Vitals: Temp Pulse Resp BP Pulse Ox 98.6 F 53 16 167/94 94 02/26/17 11:16 02/26/17 11:16 02/26/17 11:16 02/26/17 11:16 02/26/17 11:16 General appearance: Present: cooperative, A&O X 3, no acute distress, answers questions appropriately - Head Head exam: Present: atraumatic, normocephalic - Eye Eye exam: Present: PERRL, conjuntiva pink, sclera anicteric Pupils: Present: PERRL - Neck Neck exam general surgery: Present: supple, trachea midline. Absent: lymphadenopathy - Respiratory Respiratory exam: Present: CTAB. Absent: accessory muscle use, rales, rhonchi, wheezes - Cardiovascular Cardiovascular exam: Present: RRR, +S1, +S2. Absent: diastolic murmur, gallop, rubs, systolic murmur - GI/Abdominal GI/Abdominal exam: Present: normal bowel sounds, soft, no peritoneal signs. Absent: distended, tenderness - Extremities Exam Extremities exam: Present: warm, radial pulses palpable and symmetrical. Absent : calf tenderness, cyanotic, pedal edema - Neurological Exam Neurological exam: Present: CN II-XII intact, oriented X3, no focal deficits. Absent: pronater drift, facial droop, speech deficit - Skin Skin exam: Present: dry, intact
[2017-02-26] MEDS ORDERED: Acetaminophen 325 MG TABLET PO PRN (15:59)
[2017-02-26] MEDS ORDERED: *HR* Heparin 10,000 UNIT/10 ML VIAL ONE (16:13)
[2017-02-26] MEDS ORDERED: Nitroglycerin 1,000 MCG/10 ML VIAL IV ONE (16:13)
[2017-02-26] MEDS ORDERED: 0.9 % Sodium Chloride 1,000 ML ONE ×2 (16:13→16:38)
[2017-02-26] MEDS ORDERED: *HR* FentaNYL (PF) 100 MCG/2 ML VIAL ONE (16:32)
[2017-02-26] MEDS ORDERED: *HR* Midazolam HCl 2 MG/2 ML VIAL ONE (16:32)
--- NOTE | 2017-02-26 16:33 | Pre-Sedation Evaluation ---
Pre-sedation evaluation - Pre-sedation checklist Date of procedure: 02/26/17 Procedure: LHC Recent Vitals: Last Vital Signs Temp 98.2 F 02/26/17 15:45 Pulse 61 02/26/17 15:45 Resp 16 02/26/17 15:45 BP 159/95 02/26/17 15:45 Pulse Ox 96 02/26/17 15:45 ASA Classification *see protocol: CLASS II-Mild systemic disease Plan of Care: Pt appropriate candidate for procedure/moderate/conscious sedation
--- NOTE | 2017-02-26 17:26 | Invasive Diagnostic Lab Proc ---
Name: Sadi Rider Date of Study: 02/26/2017 Date: 1965 Ht: 68.9in Medical Record#: [id number] Age: 51 Wt: 223.11lb Gender: Male BSA: 2.16 Order #: [id number] BMI: 33.04 Physicians Procedure Physician: Kaden Beatty MD Referring MD: Referring MD: Staff Name Position Time In Grace Acevedo RN [facility] [employer] [facility] 04:48 PM Lizzeth Turcios RN Monitor 04:48 PM Zahraa Mosqueda RT Scrub 04:48 PM Indications Indication Abnormal Test - Stress Unstable Angina Procedures Performed Procedure L HRT ARTERY/VENTRICLE ANGIO Pre-Procedure Checklist Informed consent is complete signed and on chart. H&P is on chart. ID band is on and ID verified with patient. Patient NPO for procedure The procedure was described for the patient and questions were answered. Blood Pressure: 149/93 ECG is on chart. Rhythm: NSR Plan of Care Patient will tolerate the procedure without complications. Adequate level of comfort will be maintained. Hemodynamics will remain stable Patient will recover from procedure without complications. Respiratory function will be maintained. Cardiac rhythm will remain stable. Patient temperature will be maintained. Patient and/or family have verbalized understanding of the procedure. Patient Education Chief Complaint/Reason for Test: Cardiac Cath Developmental Category: Adult (18-64 years) Developmentally Appropriate for Age: Yes Learning Barriers: None Education Needs: Procedure Education Method: Verbal Information Taught: Cardiac Cath Educational Evaluation: Able to repeat information Intravenous Access Time IV Size Location DC'd Fluid/Drip Rate Units RN 04:40 PM 18g 1 /" Patent On Arrival Rt Antecubital 0.9NaCl 25 ml/hr Grace Acevedo RN Allergies Codeine Beef Containing Products beef derived (bovine) Vital Signs Time BP (mmHg) HR (bpm) O2 Sat. RR (bpm) LOC 04:21 PM 149 / 93 57 96 % 16 5 = Fully awake and oriented or at pre-proc level 04:50 PM / % 5 = Fully awake and oriented or at pre-proc level 04:50 PM / % 4 = Oriented but drowsy 04:42 PM 141 / 95 58 98 % 14 04:47 PM 131 / 88 63 97 % 16 04:52 PM 140 / 80 62 95 % 16 04:57 PM 142 / 85 66 95 % 18 05:02 PM 144 / 85 62 96 % 12 05:07 PM 142 / 83 61 95 % 12 Procedural Medications Time Medication Dose Units Method Given By 04:47 PM Oxygen 2 L/min nasal cannula Grace Acevedo RN 04:47 PM Versed 1 mg Intravenous Grace Acevedo RN 04:47 PM Fentanyl 50 mcg Intravenous Grace Acevedo RN 04:50 PM Lidocaine 2% 10 ml Subcutaneous Kaden Beatty MD ASA Classification: CLASS II- Mild systemic disease (i.e. well-controlled diabetes, hypertension, asthma, cigarette smoking) Trung Score Preprocedure Postprocedure Activity 2- Moves 4 extremities sustained head lift Activity Circulation 2- SBP +/= 20 points of pre-anesthetic level Circulation Consciousness 2- Awake and alert oriented x 3 Consciousness O2 Saturation 2- Able to maintain O2 satruation of 92% on room air O2 Saturation Respiratory 2- Able to deep breathe and cough well Respiratory Total Score 10 Total Score Contrast Agent: Isovue Diagnostic Contrast: 55 ml Total Contrast: 55 ml Fluoro Dose: 384 mGy Procedure Log Time Note Enter By 04:22 PM CathStat 04:40 PM Pt arrived to chemical laboratory chief 2 at 16:40 scoates 04:41 PM Physician arrived 16:40 scoates 04:41 PM ASA Class CLASS II- Mild systemic disease (i.e. well-controlled diabetes, hypertension, asthma, cigarette smoking) scoates 04:41 PM Meet and greet completed scoates 04:41 PM Sign in performed according to hospital policy. scoates 04:41 PM Procedure start 16:41 scoates 04:41 PM Vitals capture started with the following parameters, Patient=Adult, Interval=5 min, Initial Ezublioa=824 mmHg, Deflation Rate=5 mmHg, Cuff placed on Left Arm 04:42 PM Time: 16:42 Oxygen on at 2 L/min per nasal cannula by Grace Acevedo RN scoates 04:42 PM HR=58 bpm, BEXK=212/95 mmhg, SpO2=98.0 %, Resp=14 B/min 04:47 PM HR=63 bpm, WWRD=313/88 mmhg, SpO2=97.0 %, Resp=16 B/min, Comment=nsr 04:47 PM Time: 16:50 Versed 1 mg Intravenous Given by Grace Acevedo RN scoates 04:47 PM Time: 16:50 Fentanyl 50 mcg Intravenous Given by Grace Acevedo RN scoates 04:48 PM Patient charges- Angio tray pack, Navilyst 3mm J, Pulse Oximetry and ACIST tubing and transducer scoates 04:48 PM Grace Acevedo RN Position: [facility] Time in: 16:48 scoates 04:48 PM Lizzeth Turcios RN Position: ,om Time in: 16:48 scoates 04:48 PM Zahraa Mosqueda RT Position: Scrub Time in: 16:48 scoates 04:49 PM Case Delayed No, inpatient scoates 04:49 PM Hair removed from procedure site in procedure lab using clippers. Bilateral groin prepped with Chloraprep by Grace Acevedo RN, safety strap applied then patient was draped. Skin intact. scoates 04:50 PM Time: 16:50 Patient comfortable and pain free: Yes scoates 04:50 PM Time: 16:50LOC: 5 = Fully awake and oriented or at pre-proc level scoates 04:50 PM Clinical Presentation: Unstable angina scoates 04:50 PM Time out performed according to hospital policy scoates 04:50 PM Time: 16:50 10 ml Lidocaine 2% to right groin Subcutaneous Given by Kaden Beatty MD scoates 04:50 PM Micro-Introducer Kit utilized for sheath placement scoates 04:50 PM Access obtained by percutaneous puncture. 6Fr 10cm Terumo Conrad sheath placed in right Femoral artery. [id number] scoates 04:51 PM Pressure channel 1 zeroed. 04:52 PM 5Fr FR 4 catheter inserted over the wire DNC scoates 04:52 PM HR=62 bpm, WVSZ=099/80 mmhg, SpO2=95.0 %, Resp=16 B/min, Comment=nsr 04:53 PM Recorded Pressure: Ao, HR=64, Condition=Condition 1 (Aorta) Ao 112/84/97 04:53 PM RCA angiography performed in multiple views. scoates 04:54 PM Catheter removed scoates 04:54 PM Coronary Dominance: right scoates 04:54 PM 5Fr FL 4 catheter inserted over the wire DNC scoates 04:56 PM Catheter removed scoates 04:57 PM 5Fr Pigtail catheter inserted over the wire DNC scoates 04:57 PM HR=66 bpm, ZBAJ=276/85 mmhg, SpO2=95.0 %, Resp=18 B/min, Comment=nsr 04:58 PM Recorded Pressure: LV, HR=69, Condition=Condition 1 (Left Ventricle) LV 105/13/13 04:58 PM Recorded Pressure: LV, Ao, HR=67, Condition=Condition 1 (Left Ventricle) LV 101/9/15, (Aorta) Ao 119/90/105 04:59 PM Catheter removed scoates 05:00 PM Lesion found in LMCA. Pre Stenosis: 20 Pre DAYANA Flow: scoates 05:00 PM Lesion found in Proximal LAD. Pre Stenosis: 25 Pre DAYANA Flow: scoates 05:00 PM Left Main Coronary Artery with 20% stenosis scoates 05:00 PM Proximal Left Anterior Descending Coronary Artery with 25% stenosis. If graft is supplying this territory, 0 % stenosis. scoates 05:00 PM Procedure completed at 17:00 scoates 05:02 PM HR=62 bpm, VRPV=643/85 mmhg, SpO2=96.0 %, Resp=12 B/min 05:05 PM Time: 16:50LOC: 4 = Oriented but drowsy scoates 05:05 PM Time: 16:50 Patient comfortable and pain free: Yes scoates 05:05 PM Sign out completed: Radiation Dose 384 mGy Fluoro Time: 1.8 Isovue 370 - 200ml contrast 55 ml given by Kaden Beatty MD. Complications: NoneCardiac Rehab Consult needed: NoConfirmed administered medications: Yes scoates 05:05 PM Isovue 370 - 200ml,1 Bottle(s) used. scoates 05:06 PM Arterial sheath pulled, Mynx closure device used and was Successful [id number] S/N. scoates 05:06 PM Estimated Blood Loss: minimal scoates 05:06 PM Post ECG NSR scoates 05:06 PM Post Blood Pressure 144/85 scoates 05:06 PM 17:06 Post Pulses Bilateral DP & PT 1+ scoates 05:07 PM Information taught Cardiac Cath and Mynx scoates 05:07 PM Education needs Procedure, Plan of Care, and Responsibilities of Patient in Care scoates 05:07 PM Learning barriers :None scoates 05:07 PM Education Methods Verbal scoates 05:07 PM Education evaluation Able to repeat information scoates 05:07 PM HR=61 bpm, NDXP=073/83 mmhg, SpO2=95.0 %, Resp=12 B/min 05:08 PM Site status No bleeding/hematoma - Rt Groin as reported by Zahraa Mosqueda RT at 17:07 scoates 05:08 PM Opsite applied scoates 05:08 PM Plavix, Effient or Brilinta given No scoates 05:09 PM Delay to floor No scoates 05:09 PM Family placed in consult room. scoates 05:09 PM Complications: None scoates 05:09 PM Fluoro Time: 1.8 scoates 05:09 PM Isovue 370 - 200ml contrast 55 ml given by Kaden Beatty MD. scoates 05:09 PM Radiation Dose 384 mGy scoates 05:12 PM Vitals capture stopped. 05:13 PM Patient out of room: 17:13 scoates Complications Complication None None Hemodynamics Pressures Site Systolic/A Wave Diastolic/V Wave Mean AO 112 84 97 LV 105 13 13 LV 101 9 15 AO 119 90 105 Post Procedure Information Blood Pressure: 144/85 mmHg Rhythm: NSR Post procedural instructions were given Closure Device Time Device Success/Fail 02/26/2017 5:13:00 PM MynxGrip Successful Site Checks Time Location Status Staff Sheath In? Note 05:07 PM Rt Groin No bleeding/hematoma Zahraa Mosqueda RT Pulses Time Site Pre-Procedure Post-Procedure Note 02/26/2017 4:40:00 PM Bilateral DP & PT 1+ 5:06:00 PM Bilateral DP & PT 1+ Updated by Lizzeth Swan RN on 02/26/2017 5:19:02 PM electronically signed on 02/26/2017 5:20:00 PM with status of Final
[2017-02-27] MEDS: *HR* Morphine 2 MG/ML SYRINGE IVP PRN (02:36)
[2017-02-27 03:23] VITALS: BP 130/75
[2017-02-27 05:49] LABS: Hemoglobin 19.5 g/dL (12.9-16.9); Mean Corpuscular Hemoglobin 31.8 pg (28.0-33.3); Mean Corpuscular Volume 90.9 fL (83.0-100.0); Mean Platelet Volume 9.7 fL (9.4-12.4); Platelet Count 330 K/mcL (140-400); Red Blood Count 6.13 M/mcL (4.19-5.50); Red Cell Distribution Width 13.1 % (11.5-14.5)
[2017-02-27 05:54] LABS: Hematocrit 55.7 % (37.5-50.1)
[2017-02-27 06:05] LABS: BUN/Creatinine Ratio 28 (6-26); Blood Urea Nitrogen 26 mg/dL (8-26); Calcium 9.4 mg/dL (8.6-10.8); Carbon Dioxide 24 mEq/L (19-29); Chloride 102 mEq/L (98-109); Glucose 126 mg/dL (70-99); Osmolality,Calculated 294 (280-300); Potassium 3.8 mEq/L (3.5-4.5); Sodium 139 mEq/L (136-145); eGFR For African Americans > 60 (> 60); eGFR For Non-African Americans > 60 (> 60)
--- NOTE | 2017-02-27 07:48 | Discharge Summary ---
Date of Encounter: 02/27/17 Time of Encounter: 07:45 - Discharge Diagnosis (1) Chest pain Priority: Primary Status: Resolved Comments: presented with chest pain that occurred while working. Serial troponin negative. EKG without acute ST changes. Chest CTA negative for pulmonary embolism. Stress test with mild intensity perfusion defect in which ischemia cannot be excluded. TTE with EF 65%, mild diastolic dysfunction. 02/26/17 [facility] with minimal 2 vessel CAD; medical management and aggressive risk factor modification recommended. Cont ASA Qualifiers: Ischemic chest pain type: unspecified angina pectoris type Qualified Code(s ): I20.9 - Angina pectoris, unspecified (2) HTN (hypertension) Priority: Primary Status: Acute Comments: per hx. BP variable with SBP is 160s to 170s. Home amlodipine increased and low -dose BB added per cardiology while inpatient. Continue home ARB. BP significantly improved with adjustment of BP medications. Rx given for BP monitor. Recommend follow-up with PCP within one week for BP recheck. Qualifiers: Hypertension type: essential hypertension Qualified Code(s): I10 - Essential (primary) hypertension (3) HLD (hyperlipidemia) Priority: Primary Status: Acute Comments: LDL 91, cont home statin Qualifiers: Hyperlipidemia type: unspecified Qualified Code(s): E78.5 - Hyperlipidemia , unspecified - Discharge Medications Prescriptions: amLODIPine [Norvasc] 10 mg PO DAILY #30 tablet Metoprolol [Lopressor] 12.5 mg PO BID #30 tablet Home Medications: Ascorbic Acid [Vitamin C] 250 mg PO DAILY 02/22/17 [History] Aspirin 81 mg PO DAILY 02/22/17 [History] Ergocalciferol (VITAMIN D2) [Vitamin D2] 50,000 unit PO FR 02/22/17 [History] Ibuprofen 800 mg PO TID PRN 02/22/17 [History] Losartan Potassium [Cozaar] 100 mg PO DAILY 02/22/17 [History] Pravastatin Sodium 10 mg PO DAILY 02/22/17 [History] Metoprolol [Lopressor] 12.5 mg PO BID #30 tablet 02/26/17 [Rx] amLODIPine [Norvasc] 10 mg PO DAILY #30 tablet 02/26/17 [Rx] Allergies/Adverse Reactions: 3 Allergy/AdvReac Type Severity Reaction Status Date / Time Beef Containing Products Allergy Hives Verified 02/25/17 18:39 beef derived (bovine) Allergy Hives Verified 02/25/17 18:39 Procedures/tests Complete & Pending: Procedures Performed prior 72 hours Category Date Time Status CL Cardiac Catheterization [CL] Routine [employer] Supervisor 02/26/17 11:38 Completed Date of admission: 02/22/17 18:13 Primary care physician: Mendez Hartman CNP Consults: 02/23/17 14:39 Consult to Cardiology [CONS] Routine Comment: Consulting Provider: Card[facility] [place] Reason for Consult: Abnormal stress test Call Completed: Yes Discharging clinician: Dede Howard Anticipated date of discharge: 02/27/17 - Patient Status Disposition: Home, Self-Care Condition: Good - Discharge Instructions Instructions: Metoprolol (By mouth), Chronic Hypertension (DC) Follow Up With: Mendez Hartman CNP [Primary Care Provider] - 03/01/17 9:30 am Additional Instructions: RISK FACTORS: STOP SMOKING: If you smoke, STOP. Smoking or tobacco use significantly increases your risk of heart disease because nicotine causes the arteries to narrow or constrict. It also causes fats to stick to the artery. Your chances of having a heart attack are greatly increased if you continue to smoke. For more information, call the education line for smoking cessation 7-223-CXBJATG EAT A LOW FAT/CHOLESTEROL/SODIUM DIET: This diet may help reduce your chances of having a heart attack. LIFTING: Avoid lifting anything more than 10 pounds for 5-7 days Prior to straining, laughing, sneezing and/or coughing, apply manual pressure directly over insertion site. ACTIVITY: You may walk or climb stairs as tolerated You can resume sexual activity as tolerated In general, you are encouraged to engage in a minimum of 30 minutes or more of moderate intensity physical activity, such as brisk walking, daily or at least 3 -4 times weekly BATHING Do not submerge the site into water (bath tub, hot tub, swimming pool) for 1 week. This can be a source for infection into the blood stream. You may shower after 24 hours SITE CARE: After 24 hours, you may remove the dressing and leave the site open to air. Keep the site clean and dry. Clean gently and pat dry. You can expect bruising and tenderness that gradually resolve within a week or two. Return to work as instructed per your physician Resume driving as instructed per physician Keep all scheduled follow up appointments Resume medications as instructed IMPORTANT: If prescribed a Platelet Aggregation Inhibitor such as, Plavix, Brilinta or Effient: Duration of therapy is minimum one year These medications are often used in combination with Aspirin in prevention of future heart attacks Never discontinue unless consult with your Joint Sealer STROKE (CVA) Risk factors for a stroke are: Age, cigarette smoking, diabetes, excessive alcohol consumption, family history, high blood pressure, overweight, physical inactivity, prior stroke, heart attack, diagnosis of carotid artery stenosis or other artery disease. Warning signs: Sudden numbness or weakness of the face, arm or leg; especially on one side of the body, sudden confusion, trouble speaking or understanding, sudden trouble seeing in one or both eyes, sudden trouble walking, dizziness, loss of balance or coordination, sudden severe headache with no cause. Call 911 or go to the Emergency Room. CONGESTIVE HEART FAILURE: If you have been diagnosed with Congestive Heart Failure (CHF) and your symptoms return, make an appointment with your physician Weigh yourself daily. Notify your physician if you have a weight gain of two or more pounds in one day or five or more pounds in one week. If you experience any difficulty breathing, please call 911 BLEEDING: Although the risk of bleeding is minimal, it can happen. If you have any bleeding from the site, apply firm pressure above the puncture site for 10-15 minutes. If the bleeding does not stop, continue manual pressure and call 911 Contact your physician if: You develop a fever greater than 101 degrees Fahrenheit Your site becomes reddened or has any drainage You have an increase in pain or burning at the site or if a large knot forms at the site. If you experience chest pain, shortness of breath, dizziness, or extreme tiredness, stop the activity and rest. Please notify your physicians office if you experience any of these symptoms and they are not relieved by rest please call 911! - Diet and Activity Activity: increase activity as tolerated, other Diet: low fat, low cholesterol Interval History: Seen and examined at bedside. Patient said he had an uneventful night. Reports some mild tenderness to right femoral s/p C site otherwise has no complaints. He specifically denies chest pain, no shortness of breath. Says he feels better would like to go home today. Hospital course: Mr. Rider is a 51 year old male - Time Spent with Patient Total time spent providing and/or coordinating discharge services: - Constitutional Vitals: Temp Pulse Resp BP Pulse Ox 97.3 F L 61 14 130/75 94 02/27/17 03:22 02/27/17 03:22 02/27/17 03:22 02/27/17 03:22 02/27/17 03:22 General appearance: Present: cooperative, A&O X 3, no acute distress, answers questions appropriately - Head Head exam: Present: atraumatic, normocephalic - Eye Eye exam: Present: PERRL, conjuntiva pink, sclera anicteric Pupils: Present: PERRL - Neck Neck exam general surgery: Present: supple, trachea midline. Absent: lymphadenopathy - Respiratory Respiratory exam: Present: CTAB. Absent: accessory muscle use, rales, rhonchi, wheezes - Cardiovascular Cardiovascular exam: Present: RRR, +S1, +S2. Absent: diastolic murmur, gallop, rubs, systolic murmur Additional comments: Right femoral s/p LHC site with dressing C/D/I. No hematoma. Mild tenderness - GI/Abdominal GI/Abdominal exam: Present: normal bowel sounds, soft, no peritoneal signs. Absent: distended, tenderness - Extremities Exam Extremities exam: Present: warm, radial pulses palpable and symmetrical. Absent : calf tenderness, cyanotic, pedal edema - Neurological Exam Neurological exam: Present: CN II-XII intact, oriented X3, no focal deficits. Absent: pronater drift, facial droop, speech deficit - Skin Skin exam: Present: dry, intact
--- NOTE | 2017-02-27 08:51 | Cardiology Progress Note ---
Date of Encounter: 02/27/17 Time of Encounter: 08:48 Assessment and Plan (1) Abnormal nuclear stress test Current Visit: Yes Status: Acute Per Cardiology: Nuclear stress test results showed very mild intensity perfusion defect in which ischemia could not be excluded, of note poor quality study. Gated EF 69%. S/p LHC: mild nonobstructive CAD. Discharge pending. Encouraged to follow-up with PCP on a regular basis. All questions answered. Education regarding post procedure provided. Discussion w patient/family: The assessment and plan as outlined above was discussed with the patient who expressed understanding and agreement. All questions were answered. Thank you for involving us in the care of your patient. Please call with any questions. Subjective Principal diagnosis: Chest discomfort Interval history: Seen resting quietly in bed. Denies any chest pain, short of breath, palpitations. Objective Selected Entries 02/26/17 19:49 02/27/17 03:22 Temperature 97.3 F L Pulse Rate 61 Respiratory Rate 14 Blood Pressure 130/75 O2 Sat by Pulse Oximetry 94 Oxygen Delivery Method Room Air General: Conversant, No Apparent Distress HEENT: Atraumatic, Normocephaly, Mucus Membranes Moist Neck: No JVD, Normal carotid pulses Cardiac: Reg Rate and Rhythm, Normal S1 and S2, No Murmur Lungs: Normal Breath Sounds, No Wheeze, Rales, Rhonchi Neuro: Alert and responsive, No focal deficits noted Abdomen: Soft, Non-Tender Skin: No rashes noted on visualized skin, Other (Right groin site dry and intact , no bleeding, no ecchymosis, no hematoma, pulses 2+ palpable bilaterally) Musculoskeletal: No Chest Wall Tenderness Extremities: No Clubbing, No Cyanosis, No Edema, Normal Pulses Results 02/27/17 04:47 02/27/17 04:47 LHC: Lesion Findings/Interventions * Left Main Coronary Artery There is a 20% stenosis in the LMCA. * Left Anterior Descending There is a 25% stenosis in the Proximal LAD. * Circumflex The Circumflex is angiographically free of disease. The 1st Marginal is angiographically free of disease. * Right Coronary Artery The RCA is angiographically free of disease. The Right PDA is angiographically free of disease. Lab Results Active Medications Acetaminophen (Tylenol) 650 mg PO Q6HR PRN PRN Reason: Pain Stop: 08/28/17 16:00 Last Admin: 02/26/17 16:11 Dose: 650 mg Amlodipine Besylate (Norvasc) 10 mg PO DAILY [facility] PRN Reason: Protocol Stop: 08/26/17 09:01 Last Admin: 02/26/17 08:55 Dose: 10 mg Ascorbic Acid (Vitamin C) 250 mg PO DAILY [facility] Stop: 08/25/17 09:01 Last Admin: 02/26/17 08:57 Dose: 250 mg Aspirin (Aspirin) 81 mg PO DAILY [facility] Stop: 08/25/17 09:01 Last Admin: 02/26/17 08:57 Dose: 81 mg Ergocalciferol (Drisdol (50,000 Unit)) 50,000 unit PO FR [facility] Stop: 08/25/17 09:01 Last Admin: 02/23/17 11:12 Dose: 50,000 unit Heparin Sodium (Porcine) (Heparin) 5,000 unit SQ Q8HCO [facility] Stop: 08/25/17 22:01 Last Admin: 02/25/17 14:41 Dose: 5,000 unit Ibuprofen (Motrin) 800 mg PO TID PRN; Protocol PRN Reason: Pain Stop: 08/24/17 18:18 Last Admin: 02/25/17 11:15 Dose: 800 mg Losartan Potassium (Cozaar) 100 mg PO DAILY [facility] Stop: 08/25/17 09:01 Last Admin: 02/26/17 08:55 Dose: 100 mg Metoprolol Tartrate (Lopressor) 12.5 mg PO BID [facility] Stop: 08/27/17 11:46 Last Admin: 02/26/17 21:21 Dose: 12.5 mg Morphine Sulfate (Morphine Sulfate) 2 mg IVP Q4HR PRN PRN Reason: severe pain Stop: 08/24/17 19:45 Last Admin: 02/27/17 02:36 Dose: 2 mg Naloxone HCl (Narcan) 0.4 mg IVP Q2MIN PRN PRN Reason: Opioid Reversal Stop: 08/24/17 18:19 Nitroglycerin (Nitroglycerin) 0.4 mg SL Q5MIN PRN PRN Reason: Chest Pain Stop: 08/24/17 15:10 Last Admin: 02/23/17 21:29 Dose: 0.4 mg Ondansetron HCl (Zofran) 4 mg IVP Q8HR PRN PRN Reason: Nausea And Vomiting Stop: 08/24/17 18:19 Last Admin: 02/26/17 10:50 Dose: 4 mg Simvastatin (Zocor) 5 mg PO DAILY [facility] Stop: 08/25/17 09:01 Last Admin: 02/26/17 08:56 Dose: 5 mg - Imaging and Cardiology Cardiac cath: report reviewed Consult Discharge Plan - Plan Instructions: Metoprolol (By mouth), Chronic Hypertension (DC) Additional Instructions: RISK FACTORS: STOP SMOKING: If you smoke, STOP. Smoking or tobacco use significantly increases your risk of heart disease because nicotine causes the arteries to narrow or constrict. It also causes fats to stick to the artery. Your chances of having a heart attack are greatly increased if you continue to smoke. For more information, call the education line for smoking cessation 1-902-XYRXNXA EAT A LOW FAT/CHOLESTEROL/SODIUM DIET: This diet may help reduce your chances of having a heart attack. LIFTING: Avoid lifting anything more than 10 pounds for 5-7 days Prior to straining, laughing, sneezing and/or coughing, apply manual pressure directly over insertion site. ACTIVITY: You may walk or climb stairs as tolerated You can resume sexual activity as tolerated In general, you are encouraged to engage in a minimum of 30 minutes or more of moderate intensity physical activity, such as brisk walking, daily or at least 3 -4 times weekly BATHING Do not submerge the site into water (bath tub, hot tub, swimming pool) for 1 week. This can be a source for infection into the blood stream. You may shower after 24 hours SITE CARE: After 24 hours, you may remove the dressing and leave the site open to air. Keep the site clean and dry. Clean gently and pat dry. You can expect bruising and tenderness that gradually resolve within a week or two. Return to work as instructed per your physician Resume driving as instructed per physician Keep all scheduled follow up appointments Resume medications as instructed IMPORTANT: If prescribed a Platelet Aggregation Inhibitor such as, Plavix, Brilinta or Effient: Duration of therapy is minimum one year These medications are often used in combination with Aspirin in prevention of future heart attacks Never discontinue unless consult with your Smoking Pipe Maker STROKE (CVA) Risk factors for a stroke are: Age, cigarette smoking, diabetes, excessive alcohol consumption, family history, high blood pressure, overweight, physical inactivity, prior stroke, heart attack, diagnosis of carotid artery stenosis or other artery disease. Warning signs: Sudden numbness or weakness of the face, arm or leg; especially on one side of the body, sudden confusion, trouble speaking or understanding, sudden trouble seeing in one or both eyes, sudden trouble walking, dizziness, loss of balance or coordination, sudden severe headache with no cause. Call 911 or go to the Emergency Room. CONGESTIVE HEART FAILURE: If you have been diagnosed with Congestive Heart Failure (CHF) and your symptoms return, make an appointment with your physician Weigh yourself daily. Notify your physician if you have a weight gain of two or more pounds in one day or five or more pounds in one week. If you experience any difficulty breathing, please call 911 BLEEDING: Although the risk of bleeding is minimal, it can happen. If you have any bleeding from the site, apply firm pressure above the puncture site for 10-15 minutes. If the bleeding does not stop, continue manual pressure and call 911 Contact your physician if: You develop a fever greater than 101 degrees Fahrenheit Your site becomes reddened or has any drainage You have an increase in pain or burning at the site or if a large knot forms at the site. If you experience chest pain, shortness of breath, dizziness, or extreme tiredness, stop the activity and rest. Please notify your physicians office if you experience any of these symptoms and they are not relieved by rest please call 911! Referrals: [facility] [Provider Group] Mendez Hartman CNP [Primary Care Provider] - 03/01/17 9:30 am Prescriptions: amLODIPine [Norvasc] 10 mg PO DAILY #30 tablet Metoprolol [Lopressor] 12.5 mg PO BID #30 tablet
== END 2017-02-27 10:10 | disposition home or self-care (01) ==
LOC: 3BNU 12:48 → EMEROO 12:48 → 3BNU 19:09
PROVIDERS: ADMIT Nurse Practitioner; ATTEND Registered Nurse

== ENCOUNTER 2017-03-08 19:20 | Observation (INO) ==
--- NOTE | 2017-03-08 19:41 | Emergency Department Note ---
Disposition Clinical Impression: Cellulitis of right leg, Leg edema, right, Transaminitis Disposition: Admitted As Inpatient Condition: Good Time of Disposition: 00:41 General Adult HPI - General Chief complaint: ED General Medical Stated complaint: r/o DVT Time Seen by Provider: 03/08/17 19:30 Source: patient, EMS Limitations: no limitations Nursing Notes Reviewed: Yes Vital Signs Reviewed: Yes - History of Present Illness HPI Narrative: 51-year-old male complains of right lower extremities swelling and tightness that started at 300 hours this morning when he woke up. He the swelling got worse as the day went on and he had to call off from work. He went to a [facility] for evaluation and was sent here for DVT rule out. Patient has not no past history for prior DVTs or PEs. Pt denies Chest pain. Pain Scale: 0 - Related Data Home Medications Medication Instructions Recorded Confirmed Ascorbic Acid [Vitamin C] 250 mg PO DAILY 02/22/17 03/08/17 Aspirin 81 mg PO DAILY 02/22/17 03/08/17 Losartan Potassium [Cozaar] 100 mg PO DAILY 02/22/17 03/08/17 Amlodipine Besylate 10 mg PO DAILY 03/08/17 03/08/17 EPINEPHrine [Epipen] 0.3 mg IM ONCE PRN 03/08/17 03/08/17 Previous Rx's Medication Instructions Recorded Metoprolol [Lopressor] 12.5 mg PO BID #30 tablet 02/26/17 Allergies Allergy/AdvReac Type Severity Reaction Status Date / Time Beef Containing Products Allergy Hives Verified 02/25/17 18:39 beef derived (bovine) Allergy Hives Verified 02/25/17 18:39 All systems ED: reviewed and negative except as stated. Review of Systems: As Per HPI Constitutional: Denies: fever, chills, weakness Eyes: Denies: vision change ENT ED: Denies: congestion Cardiovascular: Denies: chest pain, palpitations Respiratory: Denies: cough, dyspnea, wheezes Gastrointestinal: Denies: abdominal pain, nausea, vomiting, diarrhea Genitourinary: Denies: urgency, dysuria, frequency, hematuria Past Medical History - Past Medical History Attestation: Yes The following information was validated with the patient. Source: patient, nursing notes reviewed Medical history: Reports: hyperlipidemia, hypertension, kidney stones Surgical history: Reports: other (Nephrectomy, cardiac catheter 2017) Psychiatric history: Reports: no psych history - Social History Smoking Status: Never smoker Smokeless Tobacco Status: No Alcohol use: Reports: none Drug use: Reports: marijuana Physical Exam Vital Signs Temperature 97.3 F L 03/08/17 19:26 Pulse Rate 63 03/08/17 19:26 Respiratory Rate 16 03/08/17 19:26 Blood Pressure 139/92 03/08/17 19:26 O2 Sat by Pulse Oximetry 96 03/08/17 19:26 Temperature 97.3 F L 03/08/17 19:26 Pulse Rate 63 03/08/17 19:26 Respiratory Rate 16 03/08/17 19:26 Blood Pressure 139/92 03/08/17 19:26 O2 Sat by Pulse Oximetry 96 03/08/17 19:26 Oxygen Delivery Oxygen Delivery Room Air Patient is a 51-year-old male who is alert and oriented 3. Patient is nontoxic appearing. Patient's vital signs positive for hypertension at 139/92. Rest of patient's vital signs are normal ranges. Patient has normal O2 sat 96 on room air. Patient is able to stand and ambulate without issue. Agents right lower extremity is visibly swollen compared to the left lower extremity. Patient has erythema medial aspect of thighs bilaterally with the right worse than the left. Patient attributes that to a beef allergy. Right lower extremity is swollen nonpitting and nontender to palpation in the legs entirety. Palpable full pulses are equal bilaterally at dorsal pedal and posterior tibial. - General Limitations: no limitations General appearance: alert, in no apparent distress - Head Head exam: atraumatic, normocephalic, normal inspection - Eye Eye exam: Present: normal appearance, PERRL, EOMI - ENT ENT exam: normal exam, normal oropharynx, mucous membranes moist - Neck Neck exam: Present: normal inspection, full ROM, trachea midline - Chest Chest inspection: Present: normal inspection, symmetric chest wall rise - Respiratory Respiratory exam: Present: normal lung sounds bilaterally - Cardiovascular Cardiovascular exam: Present: regular rate, normal rhythm, normal heart sounds - Abdominal Exam Abdominal exam: Present: soft, Non-Tender. Absent: tenderness, distention, guarding, rebound, rigidity - Extremities Exam Extremities exam: Present: full ROM, normal capillary refill, pedal edema, other (diffuse edema of entire RLE, with ecchymotic skin changes to R medial thigh, and erythema of RLE.). Absent: tenderness - Back Exam Back exam: Present: normal inspection - Neurological Exam Neurological exam: Present: alert, oriented X3, CN II-XII intact, reflexes normal. Absent: motor sensory deficit - Psychiatric Psychiatric exam: Present: normal affect, normal mood - Skin Skin exam: Present: warm, dry, intact, rash, other (as described above) Course Vital Signs Temperature 97.3 F L 03/08/17 19:26 Pulse Rate 63 03/08/17 19:26 Respiratory Rate 16 03/08/17 19:26 Blood Pressure 139/92 03/08/17 19:26 O2 Sat by Pulse Oximetry 96 03/08/17 19:26 Temperature 98.0 F 03/09/17 10:46 Pulse Rate 65 03/09/17 10:46 Respiratory Rate 18 03/09/17 10:46 Blood Pressure 133/73 03/09/17 10:46 O2 Sat by Pulse Oximetry 98 03/09/17 10:46 Oxygen Delivery Oxygen Delivery Room Air Medical Decision Making - MDM Narrative Medical decision making narrative: Right lower extremity DVT rule out. Differential diagnosis also includes cellulitis, allergic reaction. Labs taking a few hours ago shows no abnormalities. Patient is started on Lovenox at [facility] ED. Doppler ultrasound of right lower extremity: Negative DVT study. Currently considering other diagnoses of cellulitis. Patient had a recent heart catheterization 10 days ago which may lead to patient's current situation for possible cellulitis. CBC and CMP are taken. CMP shows transaminitis the patient has no abdominal tenderness. This currently an incidental finding. Hepatitis panel ordered for screening. Patient placed on clindamycin and IV normal saline. Patient currently has no pain in this extremities. Patient understands and agrees to treatment plan for possible cellulitis. Patient has been accepted for admission by Dr. Chakraborty the hospitalist. - Lab Data Lab results reviewed: Yes I reviewed the patient's lab results. Lab results narrative: Short CBC 03/08/17 Range/Units 21:44 WBC 13.5 H (4.3-11.1) K/mcL Hgb 16.2 (12.9-16.9) g/dL Hct 46.4 (37.5-50.1) % Plt Count 408 H (140-400) K/mcL Neutrophils # 7.3 (1.6-8.9) K/mcL BMP 03/08/17 Range/Units 21:44 Sodium 136 (136-145) mEq/L Potassium 4.2 (3.5-5.1) mEq/L Chloride 102 (98-107) mEq/L Carbon Dioxide 28 (23-29) mEq/L BUN 18 (6-20) mg/dL Creatinine 0.74 (0.70-1.30) mg/dL Glucose 105 (70-105) mg/dL Calcium 8.9 (8.6-10.3) mg/dL Liver Function 03/08/17 Range/Units 21:44 Total Bilirubin 0.6 (0.3-1.0) mg/dL AST 144 H (13-39) Units/L ALT > 500 H (7-52) Units/L Alkaline Phosphatase 128 H (34-104) Units/L Albumin 3.6 (3.5-5.7) g/dL Result diagrams: 03/09/17 04:03 03/09/17 04:03 Lab Results 03/08/17 03/08/17 Range/Units 21:44 21:44 WBC 13.5 H (4.3-11.1) K/mcL RBC 5.14 (4.19-5.50) M/mcL Hgb 16.2 (12.9-16.9) g/dL Hct 46.4 (37.5-50.1) % MCV 90.3 (83.0-100.0) fL MCH 31.5 (28.0-33.3) pg MCHC 34.9 (31.6-35.5) g/dL RDW 12.6 (11.5-14.5) % Plt Count 408 H (140-400) K/mcL MPV 9.5 (9.4-12.4) fL Immature Gran % 2.4 (0-4) % Seg Neutrophils % 53.9 % Lymphocytes % 32.1 % Monocytes % 6.2 % Eosinophils % 4.7 % Basophils % 0.7 % Neutrophils # 7.3 (1.6-8.9) K/mcL Lymphocytes # 4.3 (0.6-4.6) K/mcL Monocytes # 0.8 (0.0-1.3) K/mcL Eosinophils # 0.6 (0.0-0.6) K/mcL Basophils # 0.1 (0.0-0.2) K/mcL Sodium 136 (136-145) mEq/L Potassium 4.2 (3.5-5.1) mEq/L Chloride 102 (98-107) mEq/L Carbon Dioxide 28 (23-29) mEq/L BUN 18 (6-20) mg/dL Creatinine 0.74 (0.70-1.30) mg/dL Est GFR ( Amer) > 60 (> 60) Est GFR (Non-Af Amer) > 60 (> 60) BUN/Creatinine Ratio 24 (6-26) Glucose 105 (70-105) mg/dL Calculated Osmolality 284 (280-300) Calcium 8.9 (8.6-10.3) mg/dL Total Bilirubin 0.6 (0.3-1.0) mg/dL AST 144 H (13-39) Units/L ALT > 500 H (7-52) Units/L Alkaline Phosphatase 128 H (34-104) Units/L Serum Total Protein 5.6 L (6.4-8.9) g/dL Albumin 3.6 (3.5-5.7) g/dL Globulin 2.0 L (2.4-3.5) g/dL Albumin/Globulin Ratio 1.8 (1.1-2.2) - Radiology Data Radiology results reviewed: Yes I reviewed the patient's radiology results. - EKG Data EKG #1 EKG attestation: Yes I reviewed and interpreted this EKG. EKG results narrative: EKG taken 02/28/2017 at 2006 hrs. shows a bradycardic rhythm at a rate of 59 bpm sinus bradycardia in nature. Patient has nonspecific T-wave inversion in lead V1 lead 2 and aVL. These are seen on previous EKG taken 02/22/2017. This EKG is also sinus bradycardia cardia rate of 52 beats Attestation Statement - Attestation Attestation: I examined this patient and my medical decision-making was reviewed with the Resident Physician, Dr. Hernandez. I agree with the documented findings, disposition and treatment plan as described except to the extent set forth below. Pt is a 51 yo wm, who is sent from [facility] facility for evaluation of RLE edema and DVT r/o. Pt with gradually worsening RLE edema since 299. No hx falls /trauma. No CP/press, no SOB, no lightheadedness/syncope. Pt is s/p LHC 10 d ago. No incr R groin pain/skin changes/swelling since DC. Pt denies any F/C, and denies any RLE pain. No calf pain. No hx DVT/PE. Pt reports he is allergic to beef products, and following his LHC, he was seen in ED for anaphylaxis, placed on steroids and still has rash on medial thighs that is continuing to improve from this allergic reaction. Pt states he has had this before. Pt also with erythema of skin on RLE, also on LLE, but not as severe. Pt had prior itching to LE skin, but this has since resolved. No visible induration/abscess. No involvement. I agree with pt's PE findings.VSS. Venous doppler neg of RLE. Lbas with elev WBC count, ?? steroids Clinically concerning for sellulitis. Will start on IV antibx and admit for further eval/mgmt.
[2017-03-08] MEDS ORDERED: Clindamycin 600 MG/50 ML 600 MG/50 ML IV.SOLN IVPB ONE (21:23)
[2017-03-08] MEDS ORDERED: 0.9 % Sodium Chloride 1,000 ML IVC ONE (21:52)
[2017-03-08 22:14] LABS: Basophils # 0.1 K/mcL (0.0-0.2); Basophils % 0.7 %; Eosinophils # 0.6 K/mcL (0.0-0.6); Eosinophils % 4.7 %; Hematocrit 46.4 % (37.5-50.1); Hemoglobin 16.2 g/dL (12.9-16.9); Immature Granulocytes % 2.4 % (0-4); Lymphocytes # 4.3 K/mcL (0.6-4.6); Lymphocytes % 32.1 %; Mean Corpuscular HGB Conc 34.9 g/dL (31.6-35.5); Mean Corpuscular Hemoglobin 31.5 pg (28.0-33.3); Mean Corpuscular Volume 90.3 fL (83.0-100.0); Mean Platelet Volume 9.5 fL (9.4-12.4); Monocytes # 0.8 K/mcL (0.0-1.3); Monocytes % 6.2 %; Neutrophils # 7.3 K/mcL (1.6-8.9); Platelet Count 408 K/mcL (140-400); Red Blood Count 5.14 M/mcL (4.19-5.50); Red Cell Distribution Width 12.6 % (11.5-14.5); Segmented Neutrophils % 53.9 %
[2017-03-08 22:19] LABS: Alanine Aminotransferase > 500 Units/L (7-52); Albumin 3.6 g/dL (3.5-5.7); Albumin/Globulin Ratio 1.8 (1.1-2.2); Alkaline Phosphatase 128 Units/L (34-104); Aspartate Amino Transferase 144 Units/L (13-39); BUN/Creatinine Ratio 24 (6-26); Bilirubin,Total 0.6 mg/dL (0.3-1.0); Blood Urea Nitrogen 18 mg/dL (6-20); Calcium 8.9 mg/dL (8.6-10.3); Carbon Dioxide 28 mEq/L (23-29); Chloride 102 mEq/L (98-107); Glucose 105 mg/dL (70-105); Osmolality,Calculated 284 (280-300); Potassium 4.2 mEq/L (3.5-5.1); Sodium 136 mEq/L (136-145); Total Protein 5.6 g/dL (6.4-8.9); eGFR For African Americans > 60 (> 60); eGFR For Non-African Americans > 60 (> 60)
[2017-03-09] MEDS ORDERED: Acetaminophen 325 MG TABLET PO PRN (00:44)
--- NOTE | 2017-03-09 00:50 | Internal Med History&Physical ---
Date of Encounter: 03/09/17 Time of Encounter: 00:10 Assessment and Plan (1) Transaminitis Current visit: Yes Status: Acute Incidental acute finding; liver enzymes normal 2 weeks ago. Unclear etiology; bilirubin normal. Check RUQ U/S, Hepatitis panel; no e/o shock, ?congestive hepatitis; Echo from 2 weeks ago showed preserved EF, mild LV diastolic dysfunction. Noted to be on statin, will hold for now. (2) Leg edema, right Current visit: Yes Status: Acute Venous Doppler of lower extremity negative for DVT. Possible venous insufficiency. Suspected cellulitis, although not high index of suspicion; trial of IV Rocephin; Could also be related to recent allergic reaction. Leg elevation, elastic stockings; monitor; (3) JONI (obstructive sleep apnea) Current visit: Yes Status: Chronic received nocturnal CPAP 2 weeks ago; continue; (4) HLD (hyperlipidemia) Current visit: Yes Status: Chronic hold statin for now; Qualifiers: Hyperlipidemia type: unspecified Qualified Code(s): E78.5 - Hyperlipidemia , unspecified (5) HTN (hypertension) Current visit: Yes Status: Chronic BP well-controlled; resume home meds; Qualifiers: Hypertension type: essential hypertension Qualified Code(s): I10 - Essential (primary) hypertension (6) CAD (coronary artery disease) Current visit: Yes Status: Chronic recent LHC showed minimal 2 vessel disease, recommended medical management; continue ASA, beta braden and hold statin as above; Qualifiers: Coronary Disease-Associated Artery/Lesion type: [place] artery [place] vs. transplanted heart: [place] heart Associated angina: without angina Qualified Code(s): I25.10 - Atherosclerotic heart disease of [place] coronary artery without angina pectoris Internal Medicine - H&P: HPI Chief complaint: Right leg swelling Admitted From: Emergency Dept Plans for Post Hospital Care: Home History of present illness: Mr. Rider is a 51 year old male with h/o- HTN, HL, CAD, presents with c/o- right leg swelling. He was recently discharged from our hospital after undergoing cardiac workup for chest pain. He also underwent left heart catheterization which revealed nonobstructive 2 vessel disease. His cath was through right groin. He reports noticing a sudden onset of swelling in his right leg since yesterday morning, which was gradually progressive, and he had to take off from work due to this. On further questioning, he has some swelling in his left leg as well, although not as much as in the right leg. No leg pain, scrotal swelling; able to bear weight and ambulate without difficulty. No fever, chills, chest pain, reports some shortness of breath. No h/o- skin infections in the past. Of note, he had an allergic reaction to beef last week and had to be taken to ER at [facility] in [place], [place] where he got steroids and Epi , and was sent home. He had mild redness over both his thighs at the time. He also developed bluish petechial rash over his right thigh since yesterday. Past Med Surg Social Fam HX - Past Medical History Medical history: coronary artery disease, hyperlipidemia, hypertension, kidney stones, other (JONI) Psychiatric history: no psych history - Past Surgical History Surgical History: other (Nephrectomy, cardiac catheter 2017) - Social History Smoking Status: Never smoker Smokeless Tobacco Status: No Alcohol use: none Drug use: marijuana Occupational status: employed Current living situation: Home, With Family Activity Level: Independent ambulation Recent Out of Country Travel Within the Last 8 Weeks: No Exposure or Possible Exposure to Illness During Travel: No - Family History Brother Hx Family Cancer: Yes (Polycythemia vera) Mother Living Status: Still Living Hx Family Cardiac Disorders: Yes Hx Family Respiratory Disorders: No Hx Family Cancer: No Hx Family GI Disorders: No Hx Family Endocrine Disorder: No Hx Family Neuromuscular Disorders: No Hx Family Neurologic Disorders: No Hx Family HEENT Disorders: No Hx Family Autoimmune Disorders: No Father Living Status: Hx Family Cardiac Disorders: No Hx Family Respiratory Disorders: No Hx Family Cancer: Yes (esophageal) Hx Family GI Disorders: No Hx Family Endocrine Disorder: No Hx Family Neuromuscular Disorders: No Hx Family Neurologic Disorders: No Hx Family HEENT Disorders: No Hx Family Autoimmune Disorders: No Internal Medicine - H&P: Meds Ascorbic Acid [Vitamin C] 250 mg PO DAILY 02/22/17 [History] Aspirin 81 mg PO DAILY 02/22/17 [History] Ibuprofen 800 mg PO TID PRN 02/22/17 [History] Losartan Potassium [Cozaar] 100 mg PO DAILY 02/22/17 [History] Pravastatin Sodium 10 mg PO HS 02/22/17 [History] Metoprolol [Lopressor] 12.5 mg PO BID #30 tablet 02/26/17 [Rx] Amlodipine Besylate 10 mg PO DAILY 03/08/17 [History] EPINEPHrine [Epipen] 0.3 mg IM ONCE PRN 03/08/17 [History] 3 Allergy/AdvReac Type Severity Reaction Status Date / Time Beef Containing Products Allergy Hives Verified 02/25/17 18:39 beef derived (bovine) Allergy Hives Verified 02/25/17 18:39 All Systems PM: A 10-system review of systems was performed and is negative for pertinent findings except as documented above in the HPI. - Constitutional Constitutional: no chills, no fever(s), no night sweats - EENT Eyes: no change in vision, no discharge, no pain, no photophobia Ears: no ear discharge, no ear pain, no tinnitus Nose, mouth and throat: no dysphagia, no nasal discharge, no neck pain, no sore throat - Cardiovascular Cardiovascular ROS IM: dyspnea, edema - Respiratory Respiratory: no cough, no dyspnea, no wheezing, no excessive phlegm production - Gastrointestinal Gastrointestinal: no abdominal pain, no diarrhea, no hematemesis, no hematochezia, no melena, no nausea, no vomiting - Musculoskeletal Musculoskeletal ROS IM: no numbness, no tingling - Integumentary Integumentary IM: as per HPI, erythema, new lesions, no rash, no unusual bruising - Neurological Neurological ROS: no confusion, no convulsions, no focal weakness, no numbness, no tingling, no tremor(s) - Hematologic/Lymphatic Hematologic/Lymphatic: no easy bruising - Constitutional Vitals: Temp Pulse Resp BP Pulse Ox 97.4 F L 73 15 132/75 93 03/08/17 23:28 03/08/17 23:28 03/08/17 23:28 03/08/17 23:28 03/09/17 00:21 General appearance: Present: A&O X 3, obese, answers questions appropriately - Respiratory Respiratory exam: Present: CTAB. Absent: accessory muscle use, rales, rhonchi, wheezes - Cardiovascular Cardiovascular exam: Present: RRR, +S1, +S2. Absent: diastolic murmur, gallop, rubs, systolic murmur - GI/Abdominal GI/Abdominal exam: Present: normal bowel sounds, soft (obese), no peritoneal signs. Absent: distended, tenderness - Extremities Exam Extremities exam: Present: full ROM, pedal edema, warm, radial pulses palpable and symmetrical. Absent: calf tenderness, cyanotic Additional comments: B/L diffuse lower extremity pitting edema, 1+, right>left Right anteromedial thigh- petechial rash? nontender, nonpruritic - Neurological Exam Neurological exam: Present: CN II-XII intact, oriented X3, no focal deficits. Absent: pronater drift, facial droop, speech deficit - Skin Skin exam: Present: dry, intact Internal Med - H&P Results - Labs CBC & Chem 7: 03/08/17 21:44 03/08/17 21:44 - EKG Data -: EKG Interpreted by Myself EKG shows normal: sinus rhythm Rate: bradycardia
[2017-03-09] MEDS: Ondansetron 4 MG/2 ML VIAL IVP PRN ×2 (03:34→11:55)
[2017-03-09 04:24] LABS: Basophils # 0.1 K/mcL (0.0-0.2); Basophils % 0.8 %; Eosinophils # 0.6 K/mcL (0.0-0.6); Eosinophils % 5.2 %; Hematocrit 47.2 % (37.5-50.1); Hemoglobin 16.4 g/dL (12.9-16.9); Immature Granulocytes % 2.4 % (0-4); Lymphocytes # 3.4 K/mcL (0.6-4.6); Lymphocytes % 27.9 %; Mean Corpuscular HGB Conc 34.7 g/dL (31.6-35.5); Mean Corpuscular Hemoglobin 31.6 pg (28.0-33.3); Mean Corpuscular Volume 90.9 fL (83.0-100.0); Mean Platelet Volume 9.3 fL (9.4-12.4); Monocytes # 0.9 K/mcL (0.0-1.3); Monocytes % 7.2 %; Neutrophils # 6.9 K/mcL (1.6-8.9); Platelet Count 372 K/mcL (140-400); Red Blood Count 5.19 M/mcL (4.19-5.50); Red Cell Distribution Width 12.7 % (11.5-14.5); Segmented Neutrophils % 56.5 %
[2017-03-09 04:55] LABS: Alanine Aminotransferase > 500 Units/L (7-52); Albumin 3.4 g/dL (3.5-5.7); Albumin/Globulin Ratio 1.5 (1.1-2.2); Alkaline Phosphatase 115 Units/L (34-104); Aspartate Amino Transferase 108 Units/L (13-39); BUN/Creatinine Ratio 22 (6-26); Bilirubin,Total 0.7 mg/dL (0.3-1.0); Blood Urea Nitrogen 17 mg/dL (6-20); Calcium 8.6 mg/dL (8.6-10.3); Carbon Dioxide 29 mEq/L (23-29); Chloride 101 mEq/L (98-107); Globulin 2.2 g/dL (2.4-3.5); Glucose 116 mg/dL (70-105); Magnesium 2.2 mg/dL (1.6-2.6); Osmolality,Calculated 287 (280-300); Sodium 137 mEq/L (136-145); Total Protein 5.6 g/dL (6.4-8.9); eGFR For African Americans > 60 (> 60); eGFR For Non-African Americans > 60 (> 60)
[2017-03-09 08:05] LABS: Hepatitis A Antibody IgM Nonreactive (Nonreactive); Hepatitis B Core IgM Nonreactive (Nonreactive); Hepatitis B Surface Antigen Nonreactive (Nonreactive); Hepatitis C Virus Antibody Nonreactive (Nonreactive)
--- NOTE | 2017-03-09 08:50 | Electrocardiograph Report ---
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
[2017-03-09] MEDS ORDERED: Aspirin 81 MG TAB.CHEW PO SCH (09:00)
[2017-03-09] MEDS ORDERED: amLODIPine 5 MG TABLET PO SCH (09:00)
[2017-03-09] MEDS ORDERED: cefTRIAXone 1,000 MG in Water for inj. (sterile) 10 ML IVP SCH (09:00)
--- NOTE | 2017-03-09 09:11 | Electrocardiograph Report ---
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
[2017-03-09 10:49] VITALS: BP 133/73
--- NOTE | 2017-03-09 15:50 | Discharge Summary ---
Date of Encounter: 03/09/17 Time of Encounter: 15:46 - Discharge Diagnosis (1) Leg edema, right Priority: Primary Status: Acute (2) Transaminitis Priority: Primary Status: Acute (3) HLD (hyperlipidemia) Priority: Secondary Status: Chronic Qualifiers: Hyperlipidemia type: unspecified Qualified Code(s): E78.5 - Hyperlipidemia , unspecified (4) HTN (hypertension) Priority: Secondary Status: Chronic Qualifiers: Hypertension type: essential hypertension Qualified Code(s): I10 - Essential (primary) hypertension - Discharge Medications Home Medications: Ascorbic Acid [Vitamin C] 250 mg PO DAILY 02/22/17 [History] Aspirin 81 mg PO DAILY 02/22/17 [History] Losartan Potassium [Cozaar] 100 mg PO DAILY 02/22/17 [History] Metoprolol [Lopressor] 12.5 mg PO BID #30 tablet 02/26/17 [Rx] Amlodipine Besylate 10 mg PO DAILY 03/08/17 [History] EPINEPHrine [Epipen] 0.3 mg IM ONCE PRN 03/08/17 [History] Allergies/Adverse Reactions: 3 Allergy/AdvReac Type Severity Reaction Status Date / Time Beef Containing Products Allergy Hives Verified 02/25/17 18:39 beef derived (bovine) Allergy Hives Verified 02/25/17 18:39 Procedures/tests Complete & Pending: Procedures Performed prior 72 hours Category Date Time Status abdominal ultrasound - limited [US abdomen limited] [US Exams 03/09/17 09:00 Completed ] Routine Date of admission: 03/08/17 23:14 Primary care physician: Mendez Hartman CNP - Patient Status Disposition: Home, Self-Care Condition: Good Overall status at discharge: patient is back to baseline - Discharge Instructions Instructions: Cellulitis (DC), Chronic Hypertension (DC) Additional Instructions: MUST FOLLOW UP WITH PCP IN 1 WEEK TO RECHECK LIVER ENZYME TESTS DO NOT TAKE IBUPROFEN, TYLENOL OR PRAVASTATIN WITHOUT SPEAKING TO YOUR DOCTOR. - Diet and Activity Activity: increase activity as tolerated Diet: low fat, low cholesterol, low salt diet Hospital course: Mr. Rider is a 51 year old male 51 year old male with h/o- HTN, HL, CAD, presents with c/o- right leg swelling. He reports noticing a sudden onset of swelling in his right leg since yesterday morning, which was gradually progressive. Swelling has resolved with conservative treatment. Pt was found to have transaminitis, he does not have nausea or vomiting. He denies abdominal pain. Hepatitis panel is negative. Pt is not jaundiced. He takes both ibuprofen and pravastatin which can both cause hepatotoxicity. These have been discontinued. RUQ US was unremarkable for acute finding. Pt wants to go home today. He agrees to follow up with pcp in 1 week to recheck LFT's and return to hospital if starts to feel sick, jaundiced or nauseous. - Time Spent with Patient Total time spent providing and/or coordinating discharge services: - Constitutional Vitals: Temp Pulse Resp BP Pulse Ox 98.0 F 65 18 133/73 98 03/09/17 10:46 03/09/17 10:46 03/09/17 10:46 03/09/17 10:46 03/09/17 10:46 General appearance: Present: A&O X 3, obese, answers questions appropriately - Head Head exam: Present: atraumatic, normocephalic - Eye Eye exam: Present: PERRL, conjuntiva pink, sclera anicteric Pupils: Present: PERRL - Neck Neck exam general surgery: Present: supple, trachea midline. Absent: lymphadenopathy - Respiratory Respiratory exam: Present: CTAB. Absent: accessory muscle use, rales, rhonchi, wheezes - Cardiovascular Cardiovascular exam: Present: RRR, +S1, +S2. Absent: diastolic murmur, gallop, rubs, systolic murmur - GI/Abdominal GI/Abdominal exam: Present: normal bowel sounds, soft, no peritoneal signs. Absent: distended, tenderness - Extremities Exam Extremities exam: Present: warm, radial pulses palpable and symmetrical. Absent : calf tenderness, cyanotic, pedal edema - Neurological Exam Neurological exam: Present: CN II-XII intact, oriented X3, no focal deficits. Absent: pronater drift, facial droop, speech deficit - Skin Skin exam: Present: dry, intact
== END 2017-03-09 16:10 | disposition home or self-care (01) ==
LOC: 3ANU 19:20 → EMEROO 19:20 → 3ANU 23:27
PROVIDERS: ADMIT Internal Medicine Hematology & Oncology; ATTEND Internal Medicine

== ENCOUNTER 2017-06-14 12:20 | Observation (INO) ==
--- NOTE | 2017-06-14 12:28 | Emergency Department Note ---
Disposition Clinical Impression: Chest pain Qualifiers: Chest pain type: unspecified Qualified Code(s): R07.9 - Chest pain, unspecified Disposition: Admitted As Inpatient Condition: Good Time of Disposition: 14:22 Chest Pain HPI - General Chief Complaint: ED Chest Pain Stated Complaint: Chest Pain Time Seen by Provider: 06/14/17 12:25 Source: patient, EMS Mode of arrival: EMS Limitations: no limitations Vital Signs Reviewed: Yes Nursing Notes Reviewed: Yes - History of Present Illness HPI Narrative: Patient is a 51-year-old male with past medical history of minimal to vessel CAD , HTN, HLD; nonsmoker. He presents today due to chest pain. He states that the chest pain has been present for the past 2-3 hours, started while he was working and mildly exerting himself. He describes as a sharp left-sided pressure that radiates to his left arm. Worsens with exertion. It was a 10 out of 10 and after 2 nitroglycerin and aspirin 325 while en route by EMS, pain has decreased to 6 out of 10. Mild sweating but no other nausea, vomiting, fevers, abdominal pain. He also admits to bilateral lower extremity swelling over the past several days. He denies any specific calf tenderness or erythema of the lower extremities. He does admit that he had a heart About 2 months ago with similar symptoms and had no stenting performed. Records show that he does have minimal to vessel disease. No hx of DVT, unilateral leg swelling, recent surgeries, no hemoptysis. - Related Data Home Medications Medication Instructions Recorded Confirmed RX: Ascorbic Acid [Vitamin C] 250 mg PO DAILY 02/22/17 06/14/17 RX: Aspirin 81 mg PO DAILY 02/22/17 06/14/17 RX: Losartan Potassium [Cozaar] 100 mg PO DAILY 02/22/17 06/14/17 RX: Amlodipine Besylate 10 mg PO DAILY 03/08/17 06/14/17 RX: EPINEPHrine [Epipen] 0.3 mg IM ONCE PRN 03/08/17 06/14/17 Cholecalciferol (D-3) [Vitamin D] 1,000 unit PO DAILY 06/14/17 06/14/17 Ibuprofen [Motrin] 800 mg PO Q8HR 06/14/17 06/14/17 Methocarbamol [Robaxin] 500 - 1,000 mg PO BID PRN 06/14/17 06/14/17 Starke-3/Dha/Epa/Fish Oil [Fish Oil 1 cap PO DAILY 06/14/17 06/14/17 1,000 mg Softgel] Previous Rx's Medication Instructions Recorded RX: Metoprolol [Lopressor] 12.5 mg PO BID #30 tablet 02/26/17 Allergies Allergy/AdvReac Type Severity Reaction Status Date / Time Beef Containing Products Allergy Hives Verified 02/25/17 18:39 beef derived (bovine) Allergy Hives Verified 02/25/17 18:39 All systems ED: reviewed and negative except as stated. Constitutional: Denies: fever Cardiovascular: Reports: chest pain. Denies: palpitations Respiratory: Reports: cough, dyspnea. Denies: wheezes Gastrointestinal: Denies: abdominal pain, nausea, vomiting, diarrhea, constipation Musculoskeletal: Denies: back pain, neck pain Integumentary: Denies: rash Neurological: Denies: headache, weakness, numbness, paresthesias Chest Pain PMH - Past Medical History Medical history: Reports: hyperlipidemia, hypertension, kidney stones Surgical history: Reports: other (Nephrectomy, cardiac catheter 2017) Psychiatric history: Reports: no psych history - Social History Smoking Status: Never smoker Alcohol use: Reports: none Drug use: Reports: marijuana Physical Exam - General Limitations: no limitations General appearance: alert, in no apparent distress - Head Head exam: atraumatic, normocephalic, normal inspection - Eye Eye exam: Present: normal appearance, PERRL, EOMI - ENT ENT exam: normal exam, normal oropharynx, mucous membranes moist - Neck Neck exam: Present: normal inspection, full ROM, trachea midline - Chest Chest inspection: Present: normal inspection, symmetric chest wall rise. Absent : tenderness, rash - Respiratory Respiratory exam: Present: normal lung sounds bilaterally - Cardiovascular Cardiovascular exam: Present: regular rate, normal rhythm, normal heart sounds - Abdominal Exam Abdominal exam: Present: soft, Non-Tender. Absent: tenderness, distention, guarding, rebound, rigidity - Extremities Exam Extremities exam: Present: normal inspection, full ROM. Absent: tenderness, pedal edema - Neurological Exam Neurological exam: Present: alert, oriented X3 - Psychiatric Psychiatric exam: Present: normal affect, normal mood - Skin Skin exam: Present: warm, dry, intact, normal color Course Course Narrative: Patient was mildly hypertensive on presentation. Otherwise, the rest of the vitals were within normal limits. Physical exam fairly benign. Heart regular rate and rhythm, lungs clear to auscultation, no tenderness of the chest or abdomen soft and nontender. He does have some mild pitting edema bilateral lower extremities but no overt calf tenderness or redness. EKG was performed and shows normal sinus rhythm with no acute ST changes. We will give the patient an additional nitroglycerin to see if this will take his pain away. Patient was 30 given aspirin 325 mg by EMS. We will obtain chest x-ray, basic blood work, troponin for further eval. If patient is still symptomatic, he may require admission for further evaluation. 14:10 troponin negative. Chest x-ray negative. No major abnormality in basic bloodwork. Patient was reassessed. He was given 2 additional nitroglycerin here in the department. He states that his chest pain is now down to 2 out of 10 but still has some discomfort. He does not feel comfortable with going home at this time. Even though recent heart cath showed minimal to mild coronary disease, it is not completely rule out ACS at this time. We will admit the patient for further care. Chest X-Ray 06/14/17 12:26 IMPRESSION: 1. No active pulmonary disease. D/ / Howard Velásquez MD / Howard Velásquez MD Interpreting Provider: Howard Velásquez MD Vital Signs Temperature 97.8 F 06/14/17 12:23 Pulse Rate 65 06/14/17 12:23 Respiratory Rate 18 06/14/17 12:23 Blood Pressure 147/72 06/14/17 12:23 O2 Sat by Pulse Oximetry 98 06/14/17 12:23 Temperature 97.9 F 06/14/17 15:34 Pulse Rate 63 06/14/17 15:34 Respiratory Rate 14 06/14/17 15:34 Blood Pressure 127/68 06/14/17 15:34 O2 Sat by Pulse Oximetry 98 06/14/17 15:34 Oxygen Delivery Oxygen Delivery Room Air Chest Pain - MDM Narrative Medical decision making narrative: troponin negative. Chest x-ray negative. No major abnormality in basic bloodwork. Patient was reassessed. He was given 2 additional nitroglycerin here in the department. He states that his chest pain is now down to 2 out of 10 but still has some discomfort. He does not feel comfortable with going home at this time. Even though recent heart cath showed minimal to mild coronary disease, it is not completely rule out ACS at this time. We will admit the patient for further care. - Medical Records Medical records reviewed: Yes I reviewed the patient's medical records. - Lab Data Lab results reviewed: Yes I reviewed the patient's lab results. Result diagrams: 06/14/17 12:41 06/14/17 12:41 Lab Results 06/14/17 06/14/17 Range/Units 12:41 12:41 WBC 7.7 (4.3-11.1) K/mcL RBC 5.11 (4.19-5.50) M/mcL Hgb 17.0 H (12.9-16.9) g/dL Hct 49.0 (37.5-50.1) % MCV 95.9 (83.0-100.0) fL MCH 33.3 (28.0-33.3) pg MCHC 34.7 (31.6-35.5) g/dL RDW 13.5 (11.5-14.5) % Plt Count 331 (140-400) K/mcL MPV 9.5 (9.4-12.4) fL Immature Gran % 0.4 (0-4) % Seg Neutrophils % 59.9 % Lymphocytes % 25.3 % Monocytes % 8.5 % Eosinophils % 5.3 % Basophils % 0.6 % Neutrophils # 4.6 (1.6-8.9) K/mcL Lymphocytes # 2.0 (0.6-4.6) K/mcL Monocytes # 0.7 (0.0-1.3) K/mcL Eosinophils # 0.4 (0.0-0.6) K/mcL Basophils # 0.1 (0.0-0.2) K/mcL Sodium 135 L (136-145) mEq/L Potassium 3.9 (3.5-5.1) mEq/L Chloride 105 (98-107) mEq/L Carbon Dioxide 27 (23-29) mEq/L BUN 17 (6-20) mg/dL Creatinine 0.86 (0.70-1.30) mg/dL Est GFR ( Amer) > 60 (> 60) Est GFR (Non-Af Amer) > 60 (> 60) BUN/Creatinine Ratio 20 (6-26) Glucose 94 (70-105) mg/dL Calculated Osmolality 281 (280-300) Calcium 9.4 (8.6-10.3) mg/dL Troponin I < 0.03 (< 0.04) ng/mL - Radiology Data Radiology results reviewed: Yes I reviewed the patient's radiology results. Chest X-Ray 06/14/17 12:26 IMPRESSION: 1. No active pulmonary disease. D/ / Howard Velásquez MD / Howard Velásquez MD Interpreting Provider: Howard Velásquez MD - EKG Data EKG attestation: Yes I reviewed and interpreted this EKG. EKG results narrative: 06/14/2017 at 12:26. Normal sinus rhythm. Rate 65. SC 203. QRS 106. QTC 383. No acute ST elevation or depression. Possible incomplete right bundle- branch block present in lead V1 and V2. T-wave inversion in lead 3 that is not new for the patient compared to his EKG on 02/28/2017. S.B.A.Dom - Ziyad Situation: Demographics, MOA Background: Presenting Complaint, Relevant PMH, Meds, & Allergies Assessment: Vital Signs, Course and respsone to treatment, Exam Concerns, Patient/Family Expectation, Pertinant Lab Results Recommendation: Barrier(s) to disposition, Recommendation based on pending studies, treatments, or consults [email or web address] Report Given to: Dr. Perico Lackey Repor Time: 14:21
--- NOTE | 2017-06-14 12:32 | Emergency Department Note ---
Disposition Clinical Impression: Chest pain Qualifiers: Chest pain type: unspecified Qualified Code(s): R07.9 - Chest pain, unspecified Disposition: Admitted As Inpatient Condition: Good General Adult HPI - General Stated complaint: Chest Pain Time Seen by Provider: 06/14/17 12:25 Source: patient, EMS Mode of arrival: EMS Limitations: no limitations - Related Data Home Medications Medication Instructions Recorded Confirmed Ascorbic Acid [Vitamin C] 250 mg PO DAILY 02/22/17 06/14/17 Aspirin 81 mg PO DAILY 02/22/17 06/14/17 Losartan Potassium [Cozaar] 100 mg PO DAILY 02/22/17 06/14/17 Amlodipine Besylate 10 mg PO DAILY 03/08/17 06/14/17 EPINEPHrine [Epipen] 0.3 mg IM ONCE PRN 03/08/17 06/14/17 Cholecalciferol (D-3) [Vitamin D] 1,000 unit PO DAILY 06/14/17 06/14/17 Ibuprofen [Motrin] 800 mg PO Q8HR 06/14/17 06/14/17 Methocarbamol [Robaxin] 500 - 1,000 mg PO BID PRN 06/14/17 06/14/17 [place]-3/Dha/Epa/Fish Oil [Fish Oil 1 cap PO DAILY 06/14/17 06/14/17 1,000 mg Softgel] Previous Rx's Medication Instructions Recorded Metoprolol [Lopressor] 12.5 mg PO BID #30 tablet 02/26/17 Allergies Allergy/AdvReac Type Severity Reaction Status Date / Time Beef Containing Products Allergy Hives Verified 02/25/17 18:39 beef derived (bovine) Allergy Hives Verified 02/25/17 18:39 Past Medical History - Past Medical History Medical history: Reports: hyperlipidemia, hypertension, kidney stones Surgical history: Reports: other (Nephrectomy, cardiac catheter 2017) Psychiatric history: Reports: no psych history - Social History Smoking Status: Never smoker Smokeless Tobacco Status: No Alcohol use: Reports: none Drug use: Reports: marijuana Physical Exam - General Limitations: no limitations Course Vital Signs Temperature 97.8 F 06/14/17 12:23 Pulse Rate 65 06/14/17 12:23 Respiratory Rate 18 06/14/17 12:23 Blood Pressure 147/72 06/14/17 12:23 O2 Sat by Pulse Oximetry 98 06/14/17 12:23 Temperature 97.8 F 06/14/17 19:54 Pulse Rate 66 06/14/17 19:54 Respiratory Rate 14 06/14/17 19:54 Blood Pressure 141/72 06/14/17 19:54 O2 Sat by Pulse Oximetry 94 06/14/17 19:54 Oxygen Delivery Oxygen Delivery Room Air Medical Decision Making - Lab Data Result diagrams: 06/14/17 12:41 06/14/17 12:41 Lab Results 06/14/17 06/14/17 Range/Units 12:41 12:41 WBC 7.7 (4.3-11.1) K/mcL RBC 5.11 (4.19-5.50) M/mcL Hgb 17.0 H (12.9-16.9) g/dL Hct 49.0 (37.5-50.1) % MCV 95.9 (83.0-100.0) fL MCH 33.3 (28.0-33.3) pg MCHC 34.7 (31.6-35.5) g/dL RDW 13.5 (11.5-14.5) % Plt Count 331 (140-400) K/mcL MPV 9.5 (9.4-12.4) fL Immature Gran % 0.4 (0-4) % Seg Neutrophils % 59.9 % Lymphocytes % 25.3 % Monocytes % 8.5 % Eosinophils % 5.3 % Basophils % 0.6 % Neutrophils # 4.6 (1.6-8.9) K/mcL Lymphocytes # 2.0 (0.6-4.6) K/mcL Monocytes # 0.7 (0.0-1.3) K/mcL Eosinophils # 0.4 (0.0-0.6) K/mcL Basophils # 0.1 (0.0-0.2) K/mcL Sodium 135 L (136-145) mEq/L Potassium 3.9 (3.5-5.1) mEq/L Chloride 105 (98-107) mEq/L Carbon Dioxide 27 (23-29) mEq/L BUN 17 (6-20) mg/dL Creatinine 0.86 (0.70-1.30) mg/dL Est GFR ( Amer) > 60 (> 60) Est GFR (Non-Af Amer) > 60 (> 60) BUN/Creatinine Ratio 20 (6-26) Glucose 94 (70-105) mg/dL Calculated Osmolality 281 (280-300) Calcium 9.4 (8.6-10.3) mg/dL Troponin I < 0.03 (< 0.04) ng/mL Attestation Statement - Attestation Attestation: I examined this patient and my medical decision-making was reviewed with the VEGETABLE BUNCHER/PA/Advanced Practice Nurse/Resident Physician. I agree with the documented findings, disposition and treatment plan as described except to the extent set forth below. I did see the patient immediately upon arrival and also spoke with the paramedics and review the patient's past record and did look at the arrival EKG which does not show a STEMI. The patient is 2 hours of chest discomfort with radiation to the left chest and does have generalized swelling. ED EKG is pending, patient's symptoms are concerning. Laboratory as well as chest x-ray evaluation is pending. The patient will be watched closely. I did review the catheterization report from February which showed minimal two-vessel or urinary artery disease I did review the EKG which shows normal sinus rhythm with rate of 65 without acute ischemic change 1232.
[2017-06-14] MEDS: Nitroglycerin 0.4 MG TAB.SUBL SL PRN ×2 (12:37→12:41)
[2017-06-14 13:00] LABS: Basophils # 0.1 K/mcL (0.0-0.2); Basophils % 0.6 %; Eosinophils # 0.4 K/mcL (0.0-0.6); Eosinophils % 5.3 %; Immature Granulocytes % 0.4 % (0-4); Lymphocytes % 25.3 %; Mean Corpuscular HGB Conc 34.7 g/dL (31.6-35.5); Mean Corpuscular Hemoglobin 33.3 pg (28.0-33.3); Mean Corpuscular Volume 95.9 fL (83.0-100.0); Mean Platelet Volume 9.5 fL (9.4-12.4); Monocytes # 0.7 K/mcL (0.0-1.3); Monocytes % 8.5 %; Neutrophils # 4.6 K/mcL (1.6-8.9); Platelet Count 331 K/mcL (140-400); Red Blood Count 5.11 M/mcL (4.19-5.50); Red Cell Distribution Width 13.5 % (11.5-14.5); Segmented Neutrophils % 59.9 %
[2017-06-14 13:24] LABS: Troponin I < 0.03 ng/mL (< 0.04)
[2017-06-14 13:25] LABS: BUN/Creatinine Ratio 20 (6-26); Blood Urea Nitrogen 17 mg/dL (6-20); Calcium 9.4 mg/dL (8.6-10.3); Carbon Dioxide 27 mEq/L (23-29); Chloride 105 mEq/L (98-107); Glucose 94 mg/dL (70-105); Osmolality,Calculated 281 (280-300); Potassium 3.9 mEq/L (3.5-5.1); Sodium 135 mEq/L (136-145); eGFR For African Americans > 60 (> 60); eGFR For Non-African Americans > 60 (> 60)
[2017-06-14] MEDS ORDERED: *HR* EPINEPHrine 0.3 MG/0.3 ML (PEN) IM PRN (16:05)
[2017-06-14] MEDS ORDERED: Methocarbamol 500 MG TABLET PO PRN (16:05)
[2017-06-14] MEDS ORDERED: Naloxone 0.4 MG/ML INJ IVP PRN (16:08)
--- NOTE | 2017-06-14 16:12 | Internal Med History&Physical ---
<Jose Guadalupe Medel J - Last Filed: 06/14/17 22:16> Date of Encounter: 06/14/17 Time of Encounter: 16:10 Internal Medicine - H&P: HPI Chief complaint: chest pain r/o Admitted From: Home Plans for Post Hospital Care: Home History of present illness: Mr. Rider is a 51 year old male with a past medical history of CAD, HTN, HLD. He presents today with exertional sharp left-sided chest pain/pressure with radiation to his left arm. He reports that he was at work no being overly physical when the chest pain began. Associated symptoms include diaphoresis and nausea. He states the pain was initially to half tablet after 225 mg of aspirin and 2 nitroglycerin chest pain improved. However, chest pain that returned as 4/10. He is also concern is even having bilateral lower extremity edema for the last several days. Denies any leg pain or tenderness. Per my review the patient appears to have a catheter 2 months ago found to have minimal occlusive disease requiring no stenting. He is being admitted to r/o ACS Past Med Surg Social Fam HX - Past Medical History Medical history: hyperlipidemia, hypertension, kidney stones Psychiatric history: no psych history - Past Surgical History Surgical History: other - Social History Smoking Status: Never smoker Smokeless Tobacco Status: No Alcohol use: none Drug use: marijuana - Family History Brother Hx Family Cancer: Yes (Polycythemia vera) Mother Living Status: Still Living Hx Family Cardiac Disorders: Yes Hx Family Respiratory Disorders: No Hx Family Cancer: No Hx Family GI Disorders: No Hx Family Endocrine Disorder: No Hx Family Neuromuscular Disorders: No Hx Family Neurologic Disorders: No Hx Family HEENT Disorders: No Hx Family Autoimmune Disorders: No Father Family Member Ethnicity: Non- Living Status: Age at : 72 Cause of : esophagus cancer Hx Family Cardiac Disorders: Yes Hx Family Respiratory Disorders: No Hx Family Cancer: Yes Hx Family GI Disorders: No Hx Family Genitourinary Disorders: No Hx Family Endocrine Disorder: No Hx Family Musculoskeletal Disorders: No Hx Family Neuromuscular Disorders: No Hx Family Neurologic Disorders: No Hx Family HEENT Disorders: No Hx Family Autoimmune Disorders: No Hx Family Reproductive Disorders: No Hx Family Psychosocial Disorders: No Hx Family Medical Disorders: No Internal Medicine - H&P: Meds Ascorbic Acid [Vitamin C] 250 mg PO DAILY 02/22/17 [History] Aspirin 81 mg PO DAILY 02/22/17 [History] Losartan Potassium [Cozaar] 100 mg PO DAILY 02/22/17 [History] Metoprolol [Lopressor] 12.5 mg PO BID #30 tablet 02/26/17 [Rx] Amlodipine Besylate 10 mg PO DAILY 03/08/17 [History] EPINEPHrine [Epipen] 0.3 mg IM ONCE PRN 03/08/17 [History] Cholecalciferol (D-3) [Vitamin D] 1,000 unit PO DAILY 06/14/17 [History] Ibuprofen [Motrin] 800 mg PO Q8HR 06/14/17 [History] Methocarbamol [Robaxin] 500 - 1,000 mg PO BID PRN 06/14/17 [History] [place]-3/Dha/Epa/Fish Oil [Fish Oil 1,000 mg Softgel] 1 cap PO DAILY 06/14/17 [ History] 3 Allergy/AdvReac Type Severity Reaction Status Date / Time Beef Containing Products Allergy Hives Verified 02/25/17 18:39 beef derived (bovine) Allergy Hives Verified 02/25/17 18:39 All Systems PM: A 10-system review of systems was performed and is negative for pertinent findings except as documented above in the HPI. Review of systems: REVIEW OF SYSTEMS GENERAL: Negative for any nausea, vomiting, fevers, chills, or weight loss. NEUROLOGIC: Negative for any blurry vision, blind spots, double vision, facial asymmetry, dysphagia, dysarthria, hemiparesis, hemisensory deficits, vertigo, ataxia. HEENT: Negative for any head trauma, neck trauma, neck stiffness, photophobia, phonophobia, sinusitis, rhinitis. CARDIAC: Negative for any, paroxysmal nocturnal dyspnea, peripheral edema. Positive for chest pain, dyspnea with exertion, bilateral lower extremity swelling, diaphoresis and nausea PULMONARY: Negative for any shortness of breath, wheezing, COPD, or TB exposure. GASTROINTESTINAL: Negative for any abdominal pain, nausea, vomiting, bright red blood per rectum, melena. GENITOURINARY: Negative for any dysuria, hematuria, incontinence. INTEGUMENTARY: Negative for any rashes, cuts, insect bites. RHEUMATOLOGIC: Negative for any joint pains, photosensitive rashes, history of vasculitis or kidney problems. HEMATOLOGIC: Negative for any abnormal bruising, frequent infections or bleeding. - Constitutional Vitals: Temp Pulse Resp BP Pulse Ox 97.9 F 63 14 127/68 98 06/14/17 15:34 06/14/17 15:34 06/14/17 15:34 06/14/17 15:34 06/14/17 15:34 General appearance: Present: cooperative, A&O X 3, no acute distress, answers questions appropriately Exam: PHYSICAL EXAMINATION: GENERAL: The patient is a well-developed, well-nourished male in no apparent distress. He is alert and oriented x3. HEENT: Head is normocephalic and atraumatic. Extraocular muscles are intact. Pupils are equal, round, and reactive to light and accommodation. NECK: Supple. No carotid bruits. No lymphadenopathy or thyromegaly. LUNGS: Clear to auscultation. HEART: Regular rate and rhythm without murmur. ABDOMEN: Round, Soft, nontender, and nondistended. Positive bowel sounds. No hepatosplenomegaly was noted. EXTREMITIES: Bilateral lower extremity 1+ pitting edema, generalized edema bilateral hands NEUROLOGIC: No facial droop or slurred speech. SKIN: No ulceration rashes or lesions present Internal Med - H&P Results - Labs CBC & Chem 7: 06/14/17 12:41 06/14/17 12:41 - EKG Data -: EKG Interpreted by Myself EKG shows normal: sinus rhythm - EKG Data Prior EKG available for review: yes When compared to previous EKG: there is no significant change - Impressions Impressions Chest X-Ray 06/14/17 12:26 IMPRESSION: 1. No active pulmonary disease. D/ / Howard Velásquez MD / Howard Velásquez MD Interpreting Provider: Howard Velásquez MD - Assessment and plan (1) Chest pain Current Visit: Yes Status: Acute Assessment and plan: ASSESSMENT: Presents today with acute onset of chest pain which began 10:30 this morning. He reports that while at work this morning he began experiencing left-sided sharp chest pain with radiation to the left neck and left arm as well as generalized bilateral leg weakness. Associated symptoms include mild dyspnea with exertion, nausea and diaphoresis. He was recently in February 2017 for a similar episode. Workup at that time included an echocardiogram which found mild left ventricular hypertrophy and mild left ventricular diastolic dysfunction, preserved ejection fraction. At that time he also had a LHC which was found to be negative for coronary artery disease. No prior history of CAD, no family history. Initial troponin negative, chest x-ray negative for acute pulmonary process. Risk factors include obesity, hypertension and sedentary lifestyle. PLAN: - cardiac enzymes x 2 q 6 hr - EKG now and in AM - Continue ASA - Continue and HTN medications - O2 by NC to keep SpO2 greater than 92% - CBCD, BMP in AM - Heparin 5000 U SQ BID - Exercise Stress in am - Regular diet, NPO after midnight - Remove nitro patch at midnight Qualifiers: Chest pain type: unspecified Qualified Code(s): R07.9 - Chest pain, unspecified (2) HTN (hypertension) Current Visit: Yes Status: Chronic Assessment and plan: History of hypertension. Blood pressure stable, continue Cozaar and Norvasc Qualifiers: Hypertension type: essential hypertension Qualified Code(s): I10 - Essential (primary) hypertension (3) DVT prophylaxis Current Visit: Yes Status: Acute Assessment and plan: Heparin 5000 units SC BID - Time Spent With Patient Total time spent is greater than 50% in coordination of care (as documented) at patient's floor/unit and/or counseling patient: 25 - 35 minutes <Jese Lieberman - Last Filed: 06/15/17 04:29> Date of Encounter: 06/14/17 Internal Medicine - H&P: HPI History of present illness: Mr. Rider is a 51 year old male All Systems PM: A 10-system review of systems was performed and is negative for pertinent findings except as documented above in the HPI. - Constitutional Vitals: Temp Pulse Resp BP Pulse Ox 97.3 F L 61 16 112/69 94 06/14/17 23:27 06/14/17 23:27 06/14/17 23:27 06/14/17 23:27 06/14/17 23:27 Internal Med - H&P Results - Labs CBC & Chem 7: 06/15/17 01:24 06/15/17 01:24 Labs: Short CBC 06/15/17 Range/Units 01:24 WBC 8.4 (4.3-11.1) K/mcL Hgb 16.9 (12.9-16.9) g/dL Hct 48.8 (37.5-50.1) % Plt Count 300 (140-400) K/mcL BMP 06/15/17 01:24 Sodium 139 Potassium 4.1 Chloride 104 Carbon Dioxide 27 BUN 14 Creatinine 0.92 Glucose 91 Calcium 8.8 Cardiac Enzymes 06/14/17 06/15/17 Range/Units 19:29 01:24 Troponin I < 0.03 < 0.03 (< 0.04) ng/mL - Attending Attestation I have personally performed a face to face evaluation on this patient. I have reviewed and agree with the care plan provided by BRAND ENGINEER Jose Guadalupe Medel. History and Exam by me shows: Mr. Rider is a 51 year old male with a past medical history of CAD, HTN, HLD pt presented to ER with exertional sharp left-sided chest pain/pressure with radiation to his left arm. He denied any active CP now. Resting comfortably now. Gen: A, A, O x 3 Chest: Diminished BS b/l no crackles Heart: S1S2+ RRR a/p 1. Acute Angina equivalent cp on tele check serial trop schedule for stress test in AM - Assessment and plan (1) HTN (hypertension) Current Visit: Yes Status: Chronic Qualifiers: Hypertension type: essential hypertension Qualified Code(s): I10 - Essential (primary) hypertension (2) Chest pain Current Visit: Yes Status: Acute Qualifiers: Chest pain type: unspecified Qualified Code(s): R07.9 - Chest pain, unspecified (3) DVT prophylaxis Current Visit: Yes Status: Acute - Time Spent With Patient Total time spent is greater than 50% in coordination of care (as documented) at patient's floor/unit and/or counseling patient:
[2017-06-14] MEDS: *HR* Heparin 5,000 UNIT/ML VIAL SQ SCH (16:44)
[2017-06-14] MEDS: Nitroglycerin 1 INCH/GM PACKET TP SCH (16:45)
--- NOTE | 2017-06-14 17:29 | Electrocardiograph Report ---
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
[2017-06-14] MEDS ORDERED: Acetaminophen 325 MG TABLET PO PRN (20:56)
[2017-06-15 02:05] LABS: BUN/Creatinine Ratio 15 (6-26); Blood Urea Nitrogen 14 mg/dL (6-20); Calcium 8.8 mg/dL (8.6-10.3); Carbon Dioxide 27 mEq/L (23-29); Chloride 104 mEq/L (98-107); Glucose 91 mg/dL (70-105); Osmolality,Calculated 288 (280-300); Potassium 4.1 mEq/L (3.5-5.1); Sodium 139 mEq/L (136-145); eGFR For African Americans > 60 (> 60); eGFR For Non-African Americans > 60 (> 60)
[2017-06-15 02:10] LABS: Hematocrit 48.8 % (37.5-50.1); Hemoglobin 16.9 g/dL (12.9-16.9); Mean Corpuscular HGB Conc 34.6 g/dL (31.6-35.5); Mean Corpuscular Hemoglobin 33.1 pg (28.0-33.3); Mean Corpuscular Volume 95.5 fL (83.0-100.0); Mean Platelet Volume 9.7 fL (9.4-12.4); Platelet Count 300 K/mcL (140-400); Red Blood Count 5.11 M/mcL (4.19-5.50); Red Cell Distribution Width 13.4 % (11.5-14.5)
[2017-06-15] MEDS: *HR* Heparin 5,000 UNIT/ML VIAL SQ SCH ×2 (06:11→17:37)
[2017-06-15] MEDS: (Omega-3/Dha/Epa/Fish Oil [Fish Oil 1,000 Mg Softgel) PO SCH (08:03)
[2017-06-15] MEDS: Cholecalciferol (D-3) 1,000 UNIT TABLET PO SCH (08:30)
[2017-06-15] MEDS: Ascorbic Acid 500 MG TABLET PO SCH (08:30)
[2017-06-15] MEDS: Aspirin 81 MG TAB.CHEW PO SCH (08:31)
[2017-06-15] MEDS: amLODIPine 5 MG TABLET PO SCH (08:31)
--- NOTE | 2017-06-15 17:58 | Internal Med Progress Note ---
Date of Encounter: 06/15/17 Time of Encounter: 17:56 - Assessment and plan (1) HTN (hypertension) Current Visit: Yes Status: Chronic Assessment and plan: History of hypertension. Blood pressure is stable, continue Cozaar and Norvasc Qualifiers: Hypertension type: essential hypertension Qualified Code(s): I10 - Essential (primary) hypertension (2) Chest pain Current Visit: Yes Status: Acute Assessment and plan: ASSESSMENT: Presents today with acute onset of chest pain which began 10:30 this morning. He reports that while at work this morning he began experiencing left-sided sharp chest pain with radiation to the left neck and left arm as well as generalized bilateral leg weakness. Associated symptoms include mild dyspnea with exertion, nausea and diaphoresis. He was recently in February 2017 for a similar episode. Workup at that time included an echocardiogram which found mild left ventricular hypertrophy and mild left ventricular diastolic dysfunction, preserved ejection fraction. At that time he also had a LHC which was found to be negative for coronary artery disease. No prior history of CAD, no family history. Initial troponin negative, chest x-ray negative for acute pulmonary process. Risk factors include obesity, hypertension and sedentary lifestyle. PLAN: - cardiac enzymes x 2 q 6 hr negative - EKG unremarkable - Continue ASA - Continue HTN medications - O2 by NC to keep SpO2 greater than 92%, now room air - CBCD, BMP reviewed - Heparin 5000 U SQ BID - Exercise Stress cancelled secondary to recent clean cath - Regular diet - check echo Qualifiers: Chest pain type: unspecified Qualified Code(s): R07.9 - Chest pain, unspecified (3) DVT prophylaxis Current Visit: Yes Status: Acute Assessment and plan: Continue Heparin 5000 units SC BID - Time Spent With Patient Total time spent is greater than 50% in coordination of care (as documented) at patient's floor/unit and/or counseling patient: - Subjective Interval history: Patient lying in bed in no acute distress. He did not have a stress test today secondary to cleaning catheter from 02/28/2017. He also had a stress test February [id number]. The patient reports he does have reflux symptoms at times. He also gets edema that goes up his legs and then he developed chest pain. Spoke with cardiology and I explained they think this is a noncardiac chest pain please look for other causes. Are awaiting results of echocardiogram and will monitor overnight patient is agreeable to the plan of care. - Constitutional Vitals: Temp Pulse Resp BP Pulse Ox 98.3 F 75 14 135/77 97 06/15/17 15:28 06/15/17 15:28 06/15/17 15:28 06/15/17 15:28 06/15/17 15:28 General appearance: Present: cooperative, A&O X 3, no acute distress, obese, answers questions appropriately - Head Head exam: Present: atraumatic, normocephalic - Eye Eye exam: Present: PERRL, conjuntiva pink, sclera anicteric Pupils: Present: PERRL - Neck Neck exam general surgery: Present: supple, trachea midline. Absent: lymphadenopathy - Respiratory Respiratory exam: Present: CTAB. Absent: accessory muscle use, rales, rhonchi, wheezes - Cardiovascular Cardiovascular exam: Present: RRR, +S1, +S2. Absent: diastolic murmur, gallop, rubs, systolic murmur - GI/Abdominal GI/Abdominal exam: Present: normal bowel sounds, soft, no peritoneal signs. Absent: distended, tenderness - Extremities Exam Extremities exam: Present: pedal edema, warm, radial pulses palpable and symmetrical. Absent: calf tenderness, cyanotic - Neurological Exam Neurological exam: Present: alert, CN II-XII intact, normal gait, oriented X3, no focal deficits. Absent: pronater drift, facial droop, speech deficit - Skin Skin exam: Present: dry, intact, normal color, warm Internal Medicine: Result - Labs CBC & Chem 7: 06/15/17 01:24 06/15/17 01:24 Labs: Short CBC 06/15/17 Range/Units 01:24 WBC 8.4 (4.3-11.1) K/mcL Hgb 16.9 (12.9-16.9) g/dL Hct 48.8 (37.5-50.1) % Plt Count 300 (140-400) K/mcL BMP 06/15/17 01:24 Sodium 139 Potassium 4.1 Chloride 104 Carbon Dioxide 27 BUN 14 Creatinine 0.92 Glucose 91 Calcium 8.8 Cardiac Enzymes 06/14/17 06/15/17 Range/Units 19:29 01:24 Troponin I < 0.03 < 0.03 (< 0.04) ng/mL Consult Discharge Plan - Plan Referrals: Mendez Hartman, EPILEPSY PHYSICIAN [Primary Care Provider] -
[2017-06-16 05:41] LABS: Hematocrit 53.6 % (37.5-50.1); Mean Corpuscular HGB Conc 34.5 g/dL (31.6-35.5); Mean Corpuscular Hemoglobin 32.7 pg (28.0-33.3); Mean Corpuscular Volume 94.9 fL (83.0-100.0); Mean Platelet Volume 9.7 fL (9.4-12.4); Platelet Count 317 K/mcL (140-400); Red Blood Count 5.65 M/mcL (4.19-5.50); Red Cell Distribution Width 13.6 % (11.5-14.5)
[2017-06-16 05:42] LABS: Hemoglobin 18.5 g/dL (12.9-16.9)
[2017-06-16 06:03] LABS: BUN/Creatinine Ratio 16 (6-26); Blood Urea Nitrogen 14 mg/dL (6-20); Calcium 9.3 mg/dL (8.6-10.3); Carbon Dioxide 26 mEq/L (23-29); Chloride 103 mEq/L (98-107); Glucose 103 mg/dL (70-105); Osmolality,Calculated 283 (280-300); Potassium 4.1 mEq/L (3.5-5.1); Sodium 136 mEq/L (136-145); eGFR For African Americans > 60 (> 60); eGFR For Non-African Americans > 60 (> 60)
[2017-06-16] MEDS: *HR* Heparin 5,000 UNIT/ML VIAL SQ SCH (06:22)
[2017-06-16] MEDS: Aspirin 81 MG TAB.CHEW PO SCH (08:00)
[2017-06-16] MEDS: amLODIPine 5 MG TABLET PO SCH (08:00)
[2017-06-16] MEDS: Cholecalciferol (D-3) 1,000 UNIT TABLET PO SCH (08:00)
[2017-06-16] MEDS: Ascorbic Acid 500 MG TABLET PO SCH (08:00)
[2017-06-16] MEDS: Nitroglycerin 1 INCH/GM PACKET TP SCH ×2 (08:56→11:37)
[2017-06-16] MEDS: (Omega-3/Dha/Epa/Fish Oil [Fish Oil 1,000 Mg Softgel) PO SCH (09:19)
[2017-06-16 11:47] VITALS: BP 109/65
--- NOTE | 2017-06-16 13:20 | Discharge Summary ---
- NOTES TO OUTPATIENT PROVIDER Notes to Outpatient Provider: f/u with PCP regarding peripheral edema. also needs to be scheduled for outpatient colonoscopy Date of Encounter: 06/16/17 Time of Encounter: 13:15 - Discharge Diagnosis (1) HTN (hypertension) Priority: Primary Status: Chronic Qualifiers: Hypertension type: essential hypertension Qualified Code(s): I10 - Essential (primary) hypertension (2) Chest pain Priority: Primary Status: Ruled-out Qualifiers: Chest pain type: unspecified Qualified Code(s): R07.9 - Chest pain, unspecified (3) JONI (obstructive sleep apnea) Priority: Primary Status: Chronic (4) Peripheral edema Priority: Primary Status: Acute Comments: patient reports intermittent leg selling that leads to chest pain, recommend following up with his primary care physician for further workup of the edema could be related to streptococcal sleep apnea or possibly some vascular problems in his lower extremities. To be an outpatient workup Hospital course: Mr. Rider is a 51 year old male with a past medical history of CAD, hypertension, hyperlipidemia, obstructive sleep apnea. He presented to the emergency room for evaluation of exertional sharp left-sided chest pain and pressure with radiation to his left arm. He also reported some lower extremity edema and he notes a correlation between the edema of his legs and the pain in his chest. He was given aspirin and nitroglycerin and the pain improved but it did return majoring 4 out of 10. He had no leg pain or tenderness. He had a cardiac catheterization in February 2017 with normal coronaries as well as an echocardiogram and a stress test. He has no prior history of CAD and no family history. Chest x-ray was negative for acute pulmonary processes. Enzymes were negative 3 sets. EKG with no ischemic changes. He is now on room air. He does have a history of sleep apnea and utilizes a BiPAP for 4 hours at home at night. He will be discharged on his normal medication regime and to follow-up with his primary care physician regarding the lower extremity edema and atypical causes for his chest pain. Cardiology felt there was no need for a repeat stress test on this admission. He needs to have good blood pressure control and will continue his Cozaar and Norvasc. Blood pressure was well controlled during this hospitalization. Patient states he is to have a colonoscopy and I said that could be arranged by his primary care physician. The patient states that his edema is much better when he lays in bed it gets worse when he gets up and moves around. He also had some transient diarrhea this morning. No fever no abdominal pain no white count. Hemoglobin is stable and he is tolerating a diet. He will be discharged to home. Echocardiogram was reviewed with LV EF of 55%, normal left ventricular diastolic function and normal right ventricular structure and function. Mildly dilated left atrium. No significant valvular dysfunction. Estimated RVSP was 31 mmHg's. Mild pulmonary hypertension. All wall segments showed normal motion on rest Echo findings. Discharge discussed with: patient, nurse - Time Spent with Patient Total time spent providing and/or coordinating discharge services: Less than 30 minutes - Discharge Medications Home Medications: Ascorbic Acid [Vitamin C] 250 mg PO DAILY 02/22/17 [History] Aspirin 81 mg PO DAILY 02/22/17 [History] Losartan Potassium [Cozaar] 100 mg PO DAILY 02/22/17 [History] Metoprolol [Lopressor] 12.5 mg PO BID #30 tablet 02/26/17 [Rx] Amlodipine Besylate 10 mg PO DAILY 03/08/17 [History] EPINEPHrine [Epipen] 0.3 mg IM ONCE PRN 03/08/17 [History] Cholecalciferol (D-3) [Vitamin D] 1,000 unit PO DAILY 06/14/17 [History] Ibuprofen [Motrin] 800 mg PO Q8HR 06/14/17 [History] Methocarbamol [Robaxin] 500 - 1,000 mg PO BID PRN 06/14/17 [History] [place]-3/Dha/Epa/Fish Oil [Fish Oil 1,000 mg Softgel] 1 cap PO DAILY 06/14/17 [ History] Allergies/Adverse Reactions: 3 Allergy/AdvReac Type Severity Reaction Status Date / Time Beef Containing Products Allergy Hives Verified 02/25/17 18:39 beef derived (bovine) Allergy Hives Verified 02/25/17 18:39 Date of admission: 06/14/17 15:00 Primary care physician: Mendez Hartman CNP Discharging clinician: Netta Griggs Anticipated date of discharge: 06/16/17 - Constitutional Vitals: Temp Pulse Resp BP Pulse Ox 97.8 F 64 16 109/65 97 06/16/17 10:00 06/16/17 10:00 06/16/17 10:00 06/16/17 10:00 06/16/17 10:00 General appearance: Present: cooperative, A&O X 3, no acute distress, obese, answers questions appropriately - Head Head exam: Present: atraumatic, normocephalic - Eye Eye exam: Present: PERRL, conjuntiva pink, sclera anicteric Pupils: Present: PERRL - Neck Neck exam general surgery: Present: supple, trachea midline. Absent: lymphadenopathy - Respiratory Respiratory exam: Present: CTAB. Absent: accessory muscle use, rales, rhonchi, wheezes - Cardiovascular Cardiovascular exam: Present: RRR, +S1, +S2. Absent: diastolic murmur, gallop, rubs, systolic murmur - GI/Abdominal GI/Abdominal exam: Present: normal bowel sounds, soft, no peritoneal signs. Absent: distended, tenderness - Extremities Exam Extremities exam: Present: pedal edema, warm, radial pulses palpable and symmetrical. Absent: calf tenderness, cyanotic Additional comments: Only trace pedal edema today. Good pulses in both lower extremities - Neurological Exam Neurological exam: Present: alert, CN II-XII intact, oriented X3, no focal deficits. Absent: pronater drift, facial droop, speech deficit - Skin Skin exam: Present: dry, intact, normal color, warm - Patient Status Disposition: Home, Self-Care Condition: Good Functional capacity at discharge: independent ambulation Overall status at discharge: patient is back to baseline - Discharge Instructions Follow Up With: Mendez Hartman [employer] [Primary Care Provider] - - Diet and Activity Activity: increase activity as tolerated Diet: low fat, low cholesterol
== END 2017-06-16 14:54 | disposition home or self-care (01) ==
LOC: EMEROO 12:20 → 3BNU 12:20
PROVIDERS: ADMIT Nurse Practitioner; ATTEND Registered Nurse

== ENCOUNTER 2020-08-11 14:43 | Inpatient (IN) ==
[2020-08-11] MEDS ORDERED: Aspirin 81 MG TAB.CHEW PO ONE (15:07)
[2020-08-11] MEDS ORDERED: *HR* FentaNYL (PF) 100 MCG/2 ML VIAL IVP ONE (15:13)
[2020-08-11 15:28] LABS: Basophils # 0.1 K/mcL (0.0-0.2); Basophils % 0.8 %; Eosinophils # 0.2 K/mcL (0.0-0.6); Eosinophils % 1.3 %; Hemoglobin 20.1 g/dL (12.9-16.9); Immature Granulocytes % 0.6 % (0-4); Lymphocytes # 2.5 K/mcL (0.6-4.6); Lymphocytes % 21.9 %; Mean Corpuscular HGB Conc 34.6 g/dL (31.6-35.5); Mean Corpuscular Hemoglobin 31.2 pg (28.0-33.3); Mean Corpuscular Volume 90.1 fL (83.0-100.0); Mean Platelet Volume 9.4 fL (9.4-12.4); Monocytes # 1.1 K/mcL (0.0-1.3); Monocytes % 9.4 %; Neutrophils # 7.6 K/mcL (1.6-8.9); Platelet Count 356 K/mcL (140-400); Red Blood Count 6.45 M/mcL (4.19-5.50); Red Cell Distribution Width 17.7 % (11.5-14.5); White Blood Count 11.4 K/mcL (4.3-11.1)
[2020-08-11 15:35] LABS: Hematocrit 58.1 % (37.5-50.1)
[2020-08-11 15:52] LABS: BUN/Creatinine Ratio 16 (6-26); Blood Urea Nitrogen 20 mg/dL (6-20); Carbon Dioxide 31 mEq/L (23-29); Chloride 97 mEq/L (98-107); Glucose 99 mg/dL (70-105); Osmolality,Calculated 279 (280-300); Potassium 4.9 mEq/L (3.5-5.1); Sodium 133 mEq/L (136-145); Troponin I < 0.03 ng/mL (< 0.04); eGFR For African Americans > 60 (> 60); eGFR For Non-African Americans 58 (> 60)
[2020-08-11] MEDS ORDERED: 0.9 % Sodium Chloride 1,000 ML IVC ONE (15:53)
[2020-08-11] MEDS ORDERED: Gadolinium Contrast Agent (WT Based) IV PRN (16:20)
[2020-08-11] MEDS ORDERED: Naloxone 0.4 MG/ML INJ IVP PRN (16:22)
[2020-08-11] MEDS ORDERED: Perflutren Lipid Microsphere 1.3 ML in 0.9 % Sodium Chloride 8.7 ML IVP PRN (16:23)
[2020-08-11] MEDS ORDERED: 0.9 % Sodium Chloride 1,000 ML IVC SCH (16:30)
[2020-08-11] MEDS ORDERED: Calcitonin-Salmon, Synthetic 400 UNIT/2 ML VIAL IM ONE (16:33)
[2020-08-11] MEDS ORDERED: Zoledronic Acid (Zometa) 4 MG in 0.9 % Sodium Chloride 100 ML IV ONE (16:35)
[2020-08-11] MEDS ORDERED: GI Cocktail 40 ML EACH PO ONE ×2 (17:05→17:30)
[2020-08-11] MEDS ORDERED: *HR* LORazepam 2 MG/ML VIAL IVP ONE ×2 (17:33→18:07)
[2020-08-11] MEDS: Ondansetron 4 MG/2 ML VIAL IVP PRN (18:15)
[2020-08-11] MEDS: Famotidine 20 MG TABLET PO SCH ×2 (21:52→21:59)
[2020-08-11] MEDS: Doxycycline 100 MG CAPSULE PO SCH (21:59)
[2020-08-11] MEDS: *HR* Heparin 5,000 UNIT/ML VIAL SQ SCH (22:00)
[2020-08-11 23:05] LABS: Calcium 11.8 mg/dL (8.6-10.3)
[2020-08-11 23:06] LABS: Troponin I < 0.03 ng/mL (< 0.04)
[2020-08-12] MEDS: 0.9 % Sodium Chloride 1,000 ML IVC SCH ×6 (04:49→23:36)
[2020-08-12] MEDS: *HR* Heparin 5,000 UNIT/ML VIAL SQ SCH ×2 (04:51→18:54)
[2020-08-12 05:31] LABS: Basophils # 0.1 K/mcL (0.0-0.2); Basophils % 0.6 %; Eosinophils # 0.2 K/mcL (0.0-0.6); Eosinophils % 1.7 %; Hematocrit 54.7 % (37.5-50.1); Hemoglobin 18.8 g/dL (12.9-16.9); Immature Granulocytes % 0.4 % (0-4); Lymphocytes # 1.6 K/mcL (0.6-4.6); Lymphocytes % 12.3 %; Mean Corpuscular HGB Conc 34.4 g/dL (31.6-35.5); Mean Corpuscular Hemoglobin 31.6 pg (28.0-33.3); Mean Corpuscular Volume 91.9 fL (83.0-100.0); Mean Platelet Volume 9.6 fL (9.4-12.4); Monocytes # 0.7 K/mcL (0.0-1.3); Monocytes % 5.8 %; Platelet Count 313 K/mcL (140-400); Red Blood Count 5.95 M/mcL (4.19-5.50); Red Cell Distribution Width 17.5 % (11.5-14.5); Segmented Neutrophils % 79.2 %; White Blood Count 12.7 K/mcL (4.3-11.1)
[2020-08-12 05:54] LABS: BUN/Creatinine Ratio 16 (6-26); Blood Urea Nitrogen 18 mg/dL (6-20); Calcium 10.6 mg/dL (8.6-10.3); Carbon Dioxide 23 mEq/L (23-29); Chloride 104 mEq/L (98-107); Glucose 75 mg/dL (70-105); Magnesium 1.7 mg/dL (1.6-2.6); Osmolality,Calculated 281 (280-300); Phosphorous 3.1 mg/dL (2.7-4.5); Potassium 4.4 mEq/L (3.5-5.1); Sodium 135 mEq/L (136-145); Troponin I < 0.03 ng/mL (< 0.04); eGFR For African Americans > 60 (> 60); eGFR For Non-African Americans > 60 (> 60)
[2020-08-12] MEDS ORDERED: *HR* Fondaparinux 2.5 MG/0.5 ML SYRINGE SQ SCH (06:00)
[2020-08-12] MEDS: Aspirin 81 MG TAB.CHEW PO SCH (10:41)
[2020-08-12] MEDS: Doxycycline 100 MG CAPSULE PO SCH ×2 (10:41→21:45)
[2020-08-12] MEDS: Famotidine 20 MG TABLET PO SCH ×2 (10:42→21:44)
[2020-08-12] MEDS: Ondansetron 4 MG/2 ML VIAL IVP PRN (11:40)
[2020-08-12] MEDS ORDERED: chlorproMAZINE 25 MG in 0.9 % Sodium Chloride 100 ML IVPB ONE (11:57)
[2020-08-13] MEDS: 0.9 % Sodium Chloride 1,000 ML IVC SCH ×2 (03:42→08:20)
[2020-08-13] MEDS: *HR* Heparin 5,000 UNIT/ML VIAL SQ SCH ×2 (05:32→19:30)
[2020-08-13 06:31] LABS: Hematocrit 49.8 % (37.5-50.1); Mean Corpuscular HGB Conc 34.5 g/dL (31.6-35.5); Mean Corpuscular Hemoglobin 31.8 pg (28.0-33.3); Mean Corpuscular Volume 92.1 fL (83.0-100.0); Mean Platelet Volume 9.8 fL (9.4-12.4); Platelet Count 262 K/mcL (140-400); Red Blood Count 5.41 M/mcL (4.19-5.50); White Blood Count 9.1 K/mcL (4.3-11.1)
[2020-08-13 06:32] LABS: Hemoglobin 17.2 g/dL (12.9-16.9)
[2020-08-13 06:36] LABS: Immature Reticulocyte % 10.4 % (11.0-38.0); Retculocyte # 0.08 M/mcL (0.05-0.10); Reticulocyte % 1.5 % (1.6-2.8)
[2020-08-13 06:56] LABS: BUN/Creatinine Ratio 10 (6-26); Blood Urea Nitrogen 10 mg/dL (6-20); Calcium 8.7 mg/dL (8.6-10.3); Carbon Dioxide 24 mEq/L (23-29); Chloride 106 mEq/L (98-107); Glucose 121 mg/dL (70-105); Osmolality,Calculated 280 (280-300); Potassium 3.6 mEq/L (3.5-5.1); Sodium 135 mEq/L (136-145); eGFR For African Americans > 60 (> 60); eGFR For Non-African Americans > 60 (> 60)
[2020-08-13 07:02] LABS: % Iron Saturation 14 % (20-55); Iron 43 mcg/dL (65-175); Transferrin 217 mg/dL (203-362)
[2020-08-13 07:11] LABS: Ferritin 212 ng/mL (20-250)
[2020-08-13] MEDS: Doxycycline 100 MG CAPSULE PO SCH ×2 (08:21→20:30)
[2020-08-13] MEDS: Aspirin 81 MG TAB.CHEW PO SCH (08:21)
[2020-08-13] MEDS: Famotidine 20 MG TABLET PO SCH ×2 (08:21→20:30)
[2020-08-13] MEDS ORDERED: Sennosides/Docusate Sodium TABLET PO PRN (12:05)
[2020-08-13] MEDS ORDERED: Acetaminophen 325 MG TABLET PO PRN (16:33)
[2020-08-13] MEDS ORDERED: *HR* OxyCODONE/APAP 5/325 TABLET PO PRN (16:33)
[2020-08-13 16:54] LABS: Urine Collection Volume RANDOM mL
[2020-08-14] MEDS ORDERED: chlorproMAZINE 25 MG TABLET PO ONE (00:01)
[2020-08-14 00:53] LABS: Lambda Qnt Free Light Chains 14.06 mg/L (5.71-26.30)
[2020-08-14] MEDS: *HR* Heparin 5,000 UNIT/ML VIAL SQ SCH ×2 (05:24→18:30)
[2020-08-14 08:36] LABS: Kappa Qnt Free Light Chains 17.14 mg/L (3.30-19.40)
[2020-08-14 09:34] LABS: Mean Corpuscular HGB Conc 34.1 g/dL (31.6-35.5); Mean Corpuscular Hemoglobin 31.3 pg (28.0-33.3); Mean Corpuscular Volume 91.9 fL (83.0-100.0); Mean Platelet Volume 10.1 fL (9.4-12.4); Platelet Count 273 K/mcL (140-400); Red Blood Count 6.03 M/mcL (4.19-5.50); Red Cell Distribution Width 17.6 % (11.5-14.5); White Blood Count 9.6 K/mcL (4.3-11.1)
[2020-08-14 09:36] LABS: Hemoglobin 18.9 g/dL (12.9-16.9)
[2020-08-14 09:37] LABS: Hematocrit 55.4 % (37.5-50.1)
[2020-08-14 09:54] LABS: BUN/Creatinine Ratio 11 (6-26); Blood Urea Nitrogen 10 mg/dL (6-20); Calcium 9.5 mg/dL (8.6-10.3); Carbon Dioxide 23 mEq/L (23-29); Chloride 105 mEq/L (98-107); Glucose 74 mg/dL (70-105); Osmolality,Calculated 278 (280-300); Potassium 3.9 mEq/L (3.5-5.1); Sodium 135 mEq/L (136-145); eGFR For African Americans > 60 (> 60); eGFR For Non-African Americans > 60 (> 60)
[2020-08-14] MEDS: Doxycycline 100 MG CAPSULE PO SCH (10:22)
[2020-08-14] MEDS: Aspirin 81 MG TAB.CHEW PO SCH (10:22)
[2020-08-14] MEDS: Famotidine 20 MG TABLET PO SCH (10:23)
[2020-08-14 15:41] VITALS: BP 125/78
[2020-08-14] MEDS ORDERED: Ondansetron ODT 4 MG TAB.RAPDIS SL ONE (18:18)
== END 2020-08-14 19:05 | disposition short-term general hospital (02) | DRG 641 ==
LOC: EMEROOARM 14:43 → 3ANU 14:43
PROVIDERS: ADMIT Internal Medicine; ATTEND Internal Medicine